=== PATIENT | male | born 1945 | race Caucasian/White ===

== ENCOUNTER 2019-08-12 17:16 | Emergency (ER) | payer MEDICARE, OTHER, SELFPAY ==
[2019-08-12 17:20] VITALS: BP 144/82; PULSE 63; RESP 16; TEMP 37; O2SAT 95; BMI 32.1
--- NOTE | 2019-08-12 20:10 | ED_ITS ---
Entered by Jesusita Pimentel, acting as scribe for Ivania Reed MD Aug 12, 2019 17:16 HPI - Skin/Abscess/Foreign Bdy General: Chief complaint: Skin/Abscess/Foreign Body Stated complaint: NECK PAIN Time Seen by Provider: 08/12/19 20:08 Source: patient and family Mode of arrival: ambulatory History of Present Illness: HPI narrative: 74 y/o male presents to the ED with an abscess to his neck. Pt states he is unable to lay down without being very uncomfortable. It is making it difficult for him to sleep. He states he has pain that radiates down his left shoulder, at times, from the pain. MD complaint: abscess/boil Location: neck Severity: mild Pain Consistency: constant Relieving factors: none Exacerbating factors: movement Associated symptoms: Deny chills, fever(s), nausea or vomiting Review of Systems Const: Denies: fever, chills, body aches or change in appetite Eyes: Denies: blurry vision or eye discomfort ENMT: Denies: throat pain or dental pain Card: Denies: chest pain Resp: Denies: shortness of breath GI: Denies: abdominal pain, nausea, vomiting or diarrhea : Denies: painful urination Musc: Denies: neck pain or back pain Skin/Breast: Reports: skin tenderness (abscess); Denies: rash Neuro: Denies: headache Psych: Denies: depression Jay/Lymph: Denies: easy bruising All/Imm: Denies: hives PFSH ED PFSH: Social History Smoking and tobacco status: former smoker Physical Exam Const: COMMON NORMALS: no apparent distress, oriented x3 and healthy appearing HENMT: COMMON NORMALS: normocephalic and head/scalp atraumatic HEAD & SCALP: normocephalic and atraumatic Eye: COMMON NORMALS: PERRL and EOMs intact bilaterally PUPIL: Yes PERRL Neck/C-Spine: GENERAL: Yes tender (abscess to posterior left neck) Chest: COMMONS NORMALS: inspection of chest normal and palpation of chest normal Resp: COMMON NORMALS: normal respiratory effort, no retractions, no use of accessory muscles and clear to auscultation bilaterally AUSCULTATION: clear to auscultation bilaterally Cardio: COMMON NORMALS: regular rate, regular rhythm and no murmurs RATE: regular rate RHYTHM: regular rhythm GI: COMMON NORMALS: normal to inspection, nondistended, normoactive bowel sounds, soft to palpation, non-tender and no masses PALPATION: Yes soft Extremity: COMMON NORMALS: normal to inspection and full ROM Neuro: COMMON NORMALS: oriented x3, moves all extremities and no focal motor deficits Psych: COMMON NORMALS: mental status grossly normal, thought process normal and cooperative THOUGHT PROCESS: normal thought process Skin: OTHER: neck abscess Procedures Abscess I/D Site: neck Local Anesthetic: lidocaine 1% Amount of anesthesia used (mL): 5 Technique: incised with #11 blade Amount of fluid expressed (mL): 5 Packing used?: none Course Vital Signs: Vital signs: Vital Signs Temperature 98.6 F 08/12/19 17:20 Pulse Rate 63 08/12/19 17:20 Respiratory Rate 16 08/12/19 17:20 Blood Pressure 144/82 08/12/19 17:20 Pulse Oximetry 95 08/12/19 17:20 MDM - Skin/Abscess/Foreign Bdy MDM Narrative: Medical decision making narrative: Patient presents here with abscess to the back of his neck. Abscess was incised and drained. Patient is to do warm compresses and will place on Bactrim. He is stable for discharge is return if worsening. Discharge Plan Discharge Patient Disposition: Home, Self-Care Clinical Impression: Abscess of skin or subcutaneous tissue Qualifiers: Site of cutaneous abscess: neck Qualified Code(s): L02.11 - Cutaneous abscess of neck Condition: Stable Prescriptions: New Bactrim DS 800-160 mg tablet 1 tab PO BID 10 Days Qty: 20 RF: 0 No Action carvedilol 3.125 mg tablet 3.125 mg PO BID 90 Days Qty: 180 RF: 3 Discharge Orders: Discharge Order (Routine); Ordered 08/12/19 Ordered By: Ivania Reed Referrals: Leidy Curry MD [Primary Care Provider] - Edwin Schumacher DO [Family Provider] - Discharge Diet: Advance as tolerated Discharge Activity: Resume usual activity Patient Instructions: Abscess (ED) Coding Level of Care Code ED [employer] Process Worker for Chg Fwd The documentation recorded by the Margarito cazares Ashley, accurately reflects the service I personally performed and the decisions made by Derek grossman Korby, MD Aug 12, 2019 17:16
[2019-08-12 20:16] VITALS: O2SAT 98
[2019-08-12 20:45] VITALS: BP 138/75; PULSE 85; RESP 16; O2SAT 99
== END 2019-08-12 20:46 | disposition home or self-care (01) ==
PROVIDERS: Emergency Provider Emergency Medicine; Family Provider Family Medicine; PCP Family Medicine
DX: L02.11 Cutaneous abscess of neck (principal); Z87.891 Personal history of nicotine dependence
CPT/HCPCS: 10060; 99282

== ENCOUNTER 2020-11-16 07:48 | Outpatient (CLI) | payer MEDICARE, OTHER, SELFPAY ==
--- NOTE | 2020-11-16 08:07 | XRR_ITS ---
PROCEDURE INFORMATION: Exam: XR Left Knee Exam date and time: 11/16/2020 8:17 AM Age: 75 years old Clinical indication: Knee; Bilateral; Patient HX: No injuries just painful; Additional info: Left knee pain TECHNIQUE: Imaging protocol: XR Left knee. Views: 3 views. COMPARISON: No relevant prior studies available. FINDINGS: Bones/joints: [id number] degenerative arthritis. Prominent hypertrophic extension medially. Medial joint space narrowing. Hypertrophic change of the tibial spine. No acute fracture. Soft tissues: Soft tissue vascular calcification. 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
--- NOTE | 2020-11-16 08:07 | XRR_ITS ---
PROCEDURE INFORMATION: Exam: XR Right Knee Exam date and time: 11/16/2020 8:17 AM Age: 75 years old Clinical indication: Bilateral; Patient HX: Bi lat knee pain. No injury causing pain. PT specifies pain is directly below patella; Additional info: R knee pain TECHNIQUE: Imaging protocol: XR Right knee. Views: 3 views. COMPARISON: No relevant prior studies available. FINDINGS: Bones/joints: Small anterior joint effusion. Suprapatella tendon insertion site calcification. Slight degenerative irregularity of the tibial spine. Minimal hypertrophic formation of the inner margin of the patella. Soft tissues: Posterior soft tissue vascular calcification. XR/XR knee RT 3V* [id number] IMPRESSION: Minor degenerative changes right knee.
== END 2020-11-16 07:49 | disposition home or self-care (01) ==
LOC: RAD 07:57
PROVIDERS: PCP Nurse Practitioner Family; Visit Provider Nurse Practitioner Family
DX: M25.561 Pain in right knee (principal); M25.562 Pain in left knee; M17.12 Unilateral primary osteoarthritis, left knee
CPT/HCPCS: 73562

== ENCOUNTER 2021-03-10 13:31 | Outpatient (CLI) | payer MEDICARE, OTHER, SELFPAY ==
--- NOTE | 2021-03-10 13:30 | USCV_ITS ---
Samir Olsen Age: 75 Gender: M : 1945 Exam Date: 03/10/2021 14:12 Ordering Phys: Selam Hanna MD ([email or web address]) Technologist: Cyndy Watson [place] [facility] [place]: Bradycardia, Heart blck BP: 156 / 57 HR: 38 Rhythm: Sinus Technical Quality: Fair MEASUREMENTS (Male / Female) Normal Values 2D ECHO LV Diastolic Diameter PLAX 4.8 cm 4.2 - 5.9 / 3.9 - 5.3 cm LV Systolic Diameter PLAX 3.6 cm IVS Diastolic Thickness 1.6 cm 0.6 - 1.0 / 0.6 - 0.9 cm IVS Systolic Thickness 1.9 cm LVPW Diastolic Thickness 1.1 cm 0.6 - 1.0 / 0.6 - 0.9 cm LVPW Systolic Thickness 2.0 cm LVOT Diameter 1.5 cm LV Ejection Fraction 2D Teich 47.9 % LV Ejection Fraction MOD 2C 47.3 % LV Ejection Fraction 2C AL 52.5 % LA Diameter 3.5 cm LA Width 4.1 cm LA Height 4.6 cm RA Width 4.3 cm RA Height 4.8 cm Aorta at Sinotubular Diameter 3.9 cm DOPPLER AV Peak Velocity 134.0 cm/s LVOT Peak Velocity 81.0 cm/s AV Area Cont Eq vti 1.1 cm squared AV Area Cont Eq pk 1.1 cm squared MV Peak Velocity 74.0 cm/s MV Area PHT 3.3 cm squared Mitral E to A Ratio 0.8 MV E' Velocity 38.5 cm/s Mitral E to MV E' Ratio 12.4 Mitral E to LV E' Lateral Ratio 11.8 Mitral E to LV E' Septal Ratio 13.3 TR Peak Velocity 196.0 cm/s TR Peak Gradient 15.4 mmHg Right Atrial Pressure 3.0 mmHg Pulmonary Artery Systolic Pressu 18.4 mmHg PV Peak Velocity 84.0 cm/s RV Acceleration Time 0.1 s RV Ejection Time 0.4 s RV AcT/ET 0.3 FINDINGS Left Ventricle Normal left ventricular cavity size. Moderately decreased left ventricle systolic function. Left ventricular ejection fraction is estimated at 30 %. Global hypokinesis. Abnormal septal motion consistent with conduction abnormality. Abnormal diastolic function. Right Ventricle Normal right ventricular size and systolic function. RVSP could not be calculated due to incomplete tricuspid regurgitation velocity profile. Right Atrium Normal right atrial size. Left Atrium Mildly increased left atrial size. Mitral Valve Structurally normal mitral valve. No mitral valve stenosis. Mild mitral valve regurgitation. Aortic Valve Structurally normal trileaflet aortic valve. No aortic valve stenosis. No aortic valve regurgitation. Tricuspid Valve Structurally normal tricuspid valve. Trace to mild tricuspid valve regurgitation. Pulmonic Valve Pulmonic valve not well visualized. No pulmonary valve stenosis. Trace pulmonary valve regurgitation. Pericardium No pericardial effusion. Aorta Upper normal sized aortic root measured 40 mm. Ascending aorta measured at 38 mm anteroposteriorly. CONCLUSIONS 1. This is a technically difficult study ultrasound enhancing agent Optison was used per protocol. 2. Normal left ventricular cavity size. Moderately decreased left ventricle systolic function. Left ventricular ejection fraction is estimated at 30 %. Global hypokinesis. Abnormal septal motion consistent with conduction abnormality. Abnormal diastolic function. 3. Mild mitral valve regurgitation. 4. Upper normal sized aortic root measured 40 mm. Ascending aorta measured at 38 mm anteroposteriorly. Selam Hanna MD (Electronically Signed) Final Date: 11 March 2021 17:37 S
[2021-03-10] MEDS: perflutren protein-a microsphr 0.22 mg/mL SDV 3 mL IV (15:25)
== END 2021-03-10 13:32 | disposition home or self-care (01) ==
PROVIDERS: PCP Nurse Practitioner Family; Visit Provider Internal Medicine Cardiovascular Disease
DX: I44.2 Atrioventricular block, complete (principal); I25.5 Ischemic cardiomyopathy; I34.0 Nonrheumatic mitral (valve) insufficiency
CPT/HCPCS: 80053; 83735; 83880; 84443; 85025; C8929

== ENCOUNTER → 2021-04-13 09:04 | Outpatient (BNVA) | payer MEDICARE, OTHER, SELFPAY | PROVIDERS: PCP Nurse Practitioner Family; Visit Provider Thoracic Surgery (Cardiothoracic Vascular Surgery) | DX: Z01.818 Encounter for other preprocedural examination (principal); I44.39 Other atrioventricular block; Z20.822 Contact with and (suspected) exposure to COVID-19 | CPT/HCPCS: 87635 ==

== ENCOUNTER 2021-04-18 12:28 | Observation (INO) | payer MEDICARE, OTHER, SELFPAY ==
[2021-04-13 10:35] VITALS: BMI 32.5
[2021-04-13 11:02] LABS: Add Urine Microscopic? NO; Charge for UA Resulting for Rev
[2021-04-13 11:04] LABS: Basophils # 0.1 10^3/uL (0.0-0.1); Basophils % 1.5 %; Eosinophils # 0.4 10^3/uL (0.0-0.8); Eosinophils % 5.6 %; Hematocrit 42.7 % (42.0-52.0); Hemoglobin 13.8 g/dL (11.7-16.6); Lymphocytes # 1.2 10^3/uL (0.8-4.8); Lymphocytes % 18.3 %; Mean Corpuscular HGB Conc 32.3 g/dL (30.0-36.0); Mean Corpuscular Hemoglobin 30.1 pg (28.0-34.0); Mean Corpuscular Volume 93.2 fl (80-94); Mean Platelet Volume 11.2 fL (7.4-10.4); Monocytes # 0.6 10^3/uL (0.2-0.9); Monocytes % 8.4 %; Neutrophils # 4.48 10^3/uL (1.8-7.7); Neutrophils % 66.1 %; Nucleated Red Blood Cells % 0 %; Platelet Count 243 10^3/cmm (130-400); Red Blood Count 4.58 10^6/uL (4.1-5.3); Red Cell Distribution Width 13.1 % (12.1-15.1); White Blood Count 6.8 10^3/uL (4.0-10.0)
--- NOTE | 2021-04-13 11:04 | ANES.PREANE2 ---
Pre-Anesthetic Assessment Pre-Anesthetic Assessment: Height/Weight: Height 1.75 m Weight 99.79 kg Preop Diagnosis: heart block Proposed Procedure: Operation Date: 04/18/21 09:40 Proposed Procedures p Pacemaker Insertion(Not Applicable) - Yonathan Lea MD Familial anesthetic complications: none Social: Social History: No alcohol and No tobacco Exam: Pre-Anes Outpt Exam: alert, oriented x 3, clear to auscultation bilaterally and regular rate & rhythm Airway: MP: 4 Dentition: False and Other Pulmonary: Pulmonary: COPD CV/HEM: CV/HEM: CAD, CHF, HTN and AR Comments: heart block Metabolic: Metabolic: Morbid obesity Anesthetic Plan: ASA status: 4 Anesthesia: MAC Risk of > 500 ml blood loss (7ml/kg in children): No PFSH Anesthesia PFSH: Medical History (Updated 03/13/21 @ 09:25 by Selam Hanna MD) CAD in [place] artery High-grade atrioventricular block HTN (hypertension) Hyperlipidemia Ischemic cardiomyopathy Myocardial infarction KINSEY (obstructive sleep apnea) Social History Smoking and tobacco status: former smoker Household members: spouse Marital status: Data Anesthesia CBC & Chem 7: 04/13/21 10:50 04/13/21 10:50 Other Labs: Laboratory Results - last 48 hr 04/13/21 10:50 WBC 6.8 RBC 4.58 Hgb 13.8 Hct 42.7 MCV 93.2 MCH 30.1 MCHC 32.3 RDW 13.1 Plt Count 243 MPV 11.2 H Neut % (Auto) 66.1 Lymph % (Auto) 18.3 [place]cculloch % (Auto) 8.4 Eos % (Auto) 5.6 Baso % (Auto) 1.5 Neut # (Auto) 4.48 Lymph # (Auto) 1.2 [place] # (Auto) 0.6 Eos # (Auto) 0.4 Baso # (Auto) 0.1 Nucleated RBC % (auto) 0 Nucleated RBCs # 0.0 Cardiac Studies: Echocardiogram 03/10/21 Cardiac Event Monitor 04/12/21
[2021-04-13 11:10] LABS: Bilirubin Urine Neg (Negative); Blood Urine Neg (Negative); Glucose Urine UA Norm (Normal); Ketones Urine Negative (Negative); Leukocyte Esterase Urine Negative (Negative); Nitrate Urine Negative (Negative); Protein Urine Neg (Negative); Specific Gravity, Urine 1.015 (1.005-1.030); Urine Appearance Clear (CLEAR); Urine Color Straw (Yellow); Urobilinogen Urine Norm (Negative); pH Urine 5 (5-7)
[2021-04-13 11:20] LABS: Anion Gap 13.5 (5-19); Blood Urea Nitrogen 17 mg/dL (8-23); Calcium 9.8 mg/dL (8.5-10.5); Carbon Dioxide 28 mmol/L (22-29); Chloride 99 mmol/L (98-107); Creatinine Clr Calc Pharmacy 65.4945; Glucose 90 mg/dL (65-115); Osmolality Calculated 283 mOsm/kg (285-295); Potassium 4.5 mmol/L (3.5-5.1); Sodium 136 mmol/L (136-145)
[2021-04-18] VITALS (18 sets, daily range): BP systolic 113–178; BP diastolic 65–93; PULSE 55–82; RESP 12–18; TEMP 36.2–37.5; O2SAT 91–100
--- NOTE | 2021-04-18 | SCC_ITS ---
Procedure Done: Dual-chamber pacemaker implantation 199.9 seconds of fluoroscopic guidance, for a cumulative dose of 44.12 mGy, was provided to Dr. Lea by the radiology department. C-arm images of the chest were saved for the patient's permanent record. [facility]
--- NOTE | 2021-04-18 07:40 | SC_ITS ---
WS: [id number] C-ARM RADIOGRAPHS CHEST; 2 IMAGES HISTORY: Pacemaker implantation COMPARISON: None available. Intraoperative imaging during cardiac pacer placement. Lead wires are noted projecting over the expec ambreen location of the heart. SC/C-arm FL for Pacemaker IMPRESSION: Intraoperative imaging during cardiac pacer placement.
[2021-04-18] MEDS: sodium chloride 0.9% 1,000 ML 30 ML IV (08:07)
--- NOTE | 2021-04-18 08:39 | P.ANESUD_ITS ---
Pre-Anesthetic Update Pre-Anesthetic Assessment: Date of Surgery/Procedure: 04/18/21 Preop Alexa gnosis: Cardiomyopathy/AV heart block Proposed Procedure: Operation Date: 04/18/21 09:40 Proposed Procedures p Pacemaker Insertion(Not Applicable) - Yonathan Lea MD Any changes to Pre-Anesthetic Assessment?: No Last Intake: Intake Last Liquid Date 04/17/21 Last Solid Date 04/17/21 Vitals: Temperature 97.2 F L 04/18/21 07:45 Temperature Source Temporal Artery S can 04/18/21 07:45 Pulse Rate 55 L 04/18/21 07:45 Respiratory Rate 18 04/18/21 07:45 Blood Pressure 178/83 04/18/21 07:45 Blood Pressure Cyndi n 114 04/18/21 07:45 Pulse Oximetry 97 04/18/21 07:45 Oxygen Delivery Me thod 04/18/21 07:45 Exam: Pre-Anes Outpt Exam: alert, oriented x 3, clear to auscultation bilaterally and regular rate & rhythm Additional Exam Findings (including area of procedure): referred sounds from larynx, denies URI or sore throat Cardiac Studies: Echocardiogram 03/10/21 Cardiac Event Monitor 04/12/21
--- NOTE | 2021-04-18 09:40 | PM.HP ---
Providers/Chief Complaint Admitting Physician: Dr. Lea Primary Care Provider: Antoinette Oswald Chief Complaint: Heart block History of Present Illness Samir Olsen is a 75 year old male who was referred to our service by Dr. Hanna to consider dual chamber pacemaker implantation due to pleat heart block rhythm of 32 bpm. He has undergone Holter monitoring which confirms atrioventricular block with a heart rate of 34 to 40 bpm. He has a history of coronary artery disease status post interventions including stenting to the LAD and RCA several years ago with remote anterior wall NE.. He has depressed ejection fraction and initially AICD implantation was recommended by Dr. Hanna. Mr. Olsen has refused defibrillator implantation, though does agree to dual-chamber pacemaker placement. He has a past history of tobacco use though none now. He also has sleep apnea, though has refused CPAP. Transthoracic echocardiogram left March 10 reveals ejection fraction estimated at approximately 30% with moderately decreased LV systolic function. He has global hypokinesia. There is abnormal septal motion with conduction abnormality. He has mild mitral valve regurgitation. Review of Systems Const: Denies: fever(s), chills, change in appetite, change in weight, fatigue or night sweats Eyes: Denies: change in vision or blurry vision ENMT: Denies: odynophagia or hoarseness Card: Reports: edema, swelling of feet/ankles and dyspnea on exertion; Denies: chest pain, palpitations or irregular heart rhythm Resp: Denies: dyspnea or productive cough GI: Denies: abdominal pain, nausea, vomiting, dysphagia, heartburn or change in bowel habits : Denies: difficulty urinating, dysuria, urinary frequency, urinary urgency or urinary hesitancy Musc: Denies: extremity pain or extremity swelling Skin/Breast: Denies: rash Neuro: Denies: headache(s), numbness in extremities, weakness in extremities or sensory changes Psych: Denies: anxiety, depression or change in appetite Endo: Denies: polyuria, polydipsia or cold intolerance Jay/Lymph: Denies: easy bruising, easy bleeding, petechiae or enlarged lymph nodes Medications/Allergies Home Medications Medication Instructions Recorded Confirmed Last Taken Type aspirin 81 mg tablet,delayed 81 mg PO DAILY 11/12/19 04/18/21 04/13/21 History release omega-3 fatty acids 1,000 mg 1,000 mg PO DAILY 11/12/19 04/18/21 04/16/21 History capsule clopidogrel 75 mg tablet 75 mg PO DAILY #90 tab 11/19/19 04/18/21 04/13/21 Rx spironolactone 25 mg tablet 25 mg PO DAILY #30 tab 03/23/21 04/18/21 04/16/21 Rx lisinopril 10 mg tablet 5 mg PO DAILY #30 tab 04/08/21 04/18/21 04/16/21 Rx Allergies Allergy/AdvReac Type Severity Reaction Status Date / Time Tetanus Vaccines and Toxoid Allergy Unknown Verified 04/18/21 07:43 PFSH Acute PFSH: Medical History CAD in [place] artery High-grade atrioventricular block HTN (hypertension) Hyperlipidemia Ischemic cardiomyopathy Myocardial infarction KINSEY (obstructive sleep apnea) Social History Smoking and tobacco status: former smoker Household members: spouse Marital status: Vitals/I&O/Wt Last Vital Signs Temp 97.2 F L 04/18/21 07:45 Pulse 55 L 04/18/21 07:45 Resp 18 04/18/21 07:45 BP 178/83 04/18/21 07:45 Pulse Ox 97 04/18/21 07:45 Physical Exam HENMT: COMMON NORMALS: normocephalic, atraumatic, hearing grossly normal bilaterally and external ears normal Neck/C-Spine: COMMON NORMALS: no lymphadenopathy, supple and No carotid bruits GENERAL: Yes normal visual inspection, Yes trachea midline and No anterior neck swelling Chest: COMMONS NORMALS: normal palpation of entire chest wall CHEST: Yes Symmetrical chest wall rise Resp: COMMON NORMALS: No retractions, No use of accessory muscles, clear to auscultation bilaterally and percussion normal EFFORT & INSPECTION: Yes able to speak in complete sentences and Yes symmetric chest movement Cardio: COMMON NORMALS: S1 normal heart sound present PALPATION: normal PMI RATE: bradycardic BRUITS: no abdominal aortic bruits and no carotid bruits PERIPHERAL PULSES: radial pulses present positive bilateral 2+ GI: COMMON NORMALS: Normal to inspection, nondistended, normoactive bowel sounds present, Soft to palpation and non-tender Extremity: COMMON NORMALS: capillary refill normal OTHER: 1+ pretibial edema Neuro: COMMON NORMALS: patient oriented x3, no focal motor deficits and no sensory deficits noted Data : 04/13/21 10:50 04/13/21 10:50 A&P Assessment and plan (1) CHB (complete heart block): We will plan to proceed with dual-chamber pacemaker implantation as Mr. Olsen has refused consideration for AICD implantation despite his cardiomyopathy. Rationale for pacemaker implantation was carefully reviewed. Details and risks of the procedure were carefully and frankly discussed. Risks reviewed include the possibility of , stroke, heart attack, major bleeding, infection, pneumonia, thorax requiring chest tube, organ failure, dislodgment of the leads requiring need for revision, failure to benefit, prolonged hospital stay, pain after the procedure, need for further procedures, inability to complete the procedure, and possible need for long-term followup. All questions were answered. Appropriate consents have been provided for review and signature. Status: Acute Attestations Medical Necessity Statement*: 75-year-old gentleman with symptomatic bradycardia secondary to complete heart block with history for cardiovascular disease and cardiomyopathy. Time Spent in Patient Care: 16 - 35 minutes Coding Level of Care Code Acute Hop Strainer for [facility] Fwd Diagnoses CHB (complete heart block) I44.2
[2021-04-18] MEDS: lidocaine 1% INJ 20 mL INJECTION (10:03)
[2021-04-18] MEDS: ceFAZolin 1,000 mg SDV 1000 MG IRRIGATION (10:38)
--- NOTE | 2021-04-18 12:09 | XRR_ITS ---
PROCEDURE INFORMATION: Exam: XR Chest Exam date and time: 04/18/2021 12:09 PM Age: 75 years old Clinical indication: Device placement; Cardiac pacemaker placement or adjustment; Prior surgery; Surgery date: Post-operative (0-2 days); Additional info: Post op pacemaker TECHNIQUE: Imaging protocol: XR of the chest. Views: 1 view. COMPARISON: CT chest con [id number] 09/30/2015 9:42 AM FINDINGS: Tubes, catheters and devices: Cardiac device right anterior chest in good position. Lungs: Unremarkable. No consolidation. Pleural spaces: Unremarkable. No pleural effusion. No pneumothorax. Heart/Mediastinum: Unremarkable. No cardiomegaly. Bones/joints: Unremarkable. XR/XR chest 1V portable [id number] IMPRESSION: 1. No acute findings. 2. Cardiac device right anterior chest. Radiation Dose CTDIVOL = (mGy): DLP = (mGy-cm)
--- NOTE | 2021-04-18 12:11 | P.PCN_ITS ---
PACU note PACU note: VSS, Good respiratory effort, report to MANAGER ASSISTED LIVING Post-Anesthesia Exam: awake
--- NOTE | 2021-04-18 12:11 | PM.PACU ---
PACU note PACU note: VSS, Good respiratory effort, report to FURNITURE REPAIR TECHNICIAN Post-Anesthesia Exam: awake
--- NOTE | 2021-04-18 12:34 | PM.OP ---
Operative Report Date of procedure: April 18, 2021 Pre-op Diagnosis: Cardiomyopathy/AV heart block Post-op diagnosis: same Procedure Done: Dual-chamber pacemaker implantation Implants: Pacing generator, atrial and ventricular leads Pathology: none sent Surgeon: Yonathan Lea Anesthesia: MAC and Local Complications: None: Chest x-ray reveals appropriate lead positioning through a right subclavian approach. Condition: stable Disposition: PACU Brief History: Mr. Olsen is a 75-year-old gentleman referred to our service by Dr. Hanna for dual-chamber pacemaker implantation due to complete heart block with Holter monitoring confirming atrial ventricular block with a heart rate of 30-40. He has a history of coronary artery disease with multiple interventions with remote anterior wall infarction. He does have depressed ejection fraction, though has refused AICD but does wish to proceed with pacemaker implantation. Details of risk of the procedure were carefully and frankly discussed. Appropriate consents have been reviewed and signed. Procedure: Procedure: Mr. Olsen was taken to the OR suite and placed in the supine position over a shoulder roll. He received conscious sedation with continuous anesthesia monitoring by. He is entire chest was sterilely prepped and draped. Initially, we attempted multiple times for access to the left subclavian approach without success. We also utilized hand-held ultrasonography, though still were unable to adequately pass a wire. Therefore, we next attempted approach through the right subclavian region. 1% lidocaine was infiltrated in the right subclavicular region. While in Trendelenburg position, utilizing modified seldinger technique, 2 guidewires were placed in the right subclavian vein. This was confirmed in position by fluoroscopy. Next, after infiltration with lidocaine, a subcutaneous pocket was created beginning from the exit point of the guidewire and extending laterally and inferiorly. Cautery was utilized to create the pocket just above the pectoralis musculature. Hemostasis was confirmed. An antibiotic-soaked sponge was placed in the wound. A dilator and tear-away sheath was placed over the first guidewire and advanced under fluoroscopy. Guidewire and dilator were removed. Next using a combination of curved and straight stylettes, the right ventricular lead was placed in position by fluoroscopy. The distal screw was extended. Interrogation was then performed confirming appropriate parameters. The tear-away sheath was then removed and the ventricular lead was sewn to the floor of the subcutaneous pocket. In a similar fashion dilator and tear-away sheath was placed over the 2nd guide wire and advanced under fluoroscopy. Guidewire and dilator were removed. Straight and curved stylettes were used to position the right atrial lead with fluoroscopy. Distal screw was extended. Interrogation was then performed. Tear-away sheath was then removed. Atrial lead was secured to the floor of the subcutaneous pocket. Pocket was irrigated with antibiotic solution and hemostasis again confirmed. Pacing generator was brought into the field, and after confirmation of hemostasis in the subcutaneous pocket, the leads were connected to the generator with appropriate capture. The entire system was interrogated by fluoroscopy. Leads and generator were secured in the pocket. Sponge and needle count was correct. The wound was then closed in 2 layers of 3-0 Vicryl suture. Skin was reapproximated in a subcuticular manner with 4-0 Monocryl suture. A pressure dressing was applied. The right arm was placed in a sling. Mr. Olsen had equal breath sounds bilaterally. He was then transferred to the PACU, where chest x-ray confirmed appropriate positioning of the leads without evidence for pneumothorax or fluid collection on either side. I did memorial counselor with the family at the completion of the procedure. Following are the specifics of this system: Right ventricular lead is 58 cm and model 5076. Serial number [id number] Right atrial lead is 52 cm and is model 5076. Serial number [id number]. Ventricular lead had sensing of 5.9 mV with an impedance of 1275 ohms. Threshold was 1.1 V Atrial lead had sensing of 3.7 mV with an impedance of 746 ohms. Threshold was 1.1 V. TreSensa generator: Model #[id number] Serial # [id number] Currently set at DDDR 60/130
[2021-04-18] MEDS: lactated ringers 1,000 ML 75 ML IV (12:59)
--- NOTE | 2021-04-18 13:46 | ANE.PACU2 ---
Inpatient post-anesthesia follow up: Airway intact: Yes Vital signs: Temperature 97.8 F Pulse Rate 65 Respiratory Rate 18 Blood Pressure 150/88 Pulse Oximetry 98 Oxygen Delivery Me thod Room Air Oxygen Flow Rate Fraction of Inspir ed Oxygen Hydration adequate: Yes Nausea and vomiting: No Pain level: 2 Mental status: Baseline
[2021-04-18] MEDS: morphine 4 mg/mL SDV 1 mL 2 MG IVP (15:02)
[2021-04-18] MEDS: HYDROcodone-acetaminophen 5-325 mg Tablet 1 TAB PO (17:19)
--- NOTE | 2021-04-18 17:53 | PC.NURSE ---
PATIENT HAS DONE WELL SINCE ARRIVING FROM THE OR. SURGICAL DRESSING IS C/D/I. PATIENT IS PACED ON TELEMETRY. GOOD PO INTAKE AND URINE OUTPUT. PAIN WELL CONTROLLED. SCD'S IN PLACE. IMMOBILIZER IN PLACE. NO COMPLAINTS AT THIS TIME.
[2021-04-19] MEDS: HYDROcodone-acetaminophen 5-325 mg Tablet 1 TAB PO ×3 (00:16→08:59)
[2021-04-19] MEDS: lactated ringers 1,000 ML 75 ML IV (00:18)
[2021-04-19] MEDS: TRAMadol 50 mg Tablet PO (02:52)
--- NOTE | 2021-04-19 05:53 | PC.NURSE ---
SHIFT SUMMARY Has rested well tonight. Dressing to R upper chest pacemaker site remained C&D. Removed this am with pacemaker eval. Incision covered with telfa. Pacemaker eval report from eshtery was good with no abnormalities reported. Received phone call and faxed report. IV infusing without difficulty. Taking po well and voiding per urinal. Receiving IV postop antibiotics as ordered. po Hydrocodone & Tramadol for pain relief this shift. Says he should get to go home today
[2021-04-19 06:00] VITALS: PULSE 60
--- NOTE | 2021-04-19 07:34 | P.DS_ITS ---
Discharge Providers Date of Admission: 04/18/21 12:28 Date of Discharge: April 19, 2021 Attending Provider at Admission: Yonathan Lea MD Attending Provider at Discharge: Yonathan Lea MD Primary Care Provider: Antoinette Oswald Diagnoses at Discharge Discharge Diagnosis (1) CHB (complete heart block): Status: Acute Reason for Visit Reason for Visit: Heart block Hospital Course Hospital Course Mr. Olsen is a 75-year-old gentleman is followed closely by Dr. Holt from our [facility] for complete heart block with documented heart rates in the 30s and 40s. He has a history of coronary artery disease with multiple interventions and prior remote anterior wall infarction. He was referred to consider pacemaker implantation. This was carefully discussed with Mr. Olsen. Dr. Hanna had requested that he consider AICD though he refused, but did agree to pacemaker placement. He was electively admitted on April 18 3 underwent dual-chamber pacemaker implantation. Due to difficulty with access through the left subclavian approach, his system was placed in a right subclavicular position. Postoperatively, he has done well. Postop interrogation this morning reveals appropriate system function. Surgical dressing was removed. His incision is clean and dry without evidence for fluid collection and with mild ecchymosis. Postoperative dressing was placed. He will be discharged home today with limited activities as instructed. He will be scheduled follow-up in the [facility] pacemaker clinic in 1 week. He is stable at discharge. Physical Exam Chest: COMMONS NORMALS: normal inspection of the chest OTHER: Surgical site is clean and dry without evidence for fluid collection. There is mild ecchymosis. Resp: COMMON NORMALS: normal respiratory effort, No use of accessory muscles and clear to auscultation bilaterally EFFORT & INSPECTION: Yes able to speak in complete sentences and Yes symmetric chest movement AUSCULTATION: clear to auscultation bilaterally Cardio: COMMON NORMALS: regular rate, regular rhythm, S1 normal heart sound present, No murmurs present (Cardio) and No rub (Cardio) RATE: regular rate RHYTHM: regular rhythm HEART SOUNDS: S1 normal heart sound present Extremity: COMMON NORMALS: no clubbing, cyanosis or edema Discharge Data Data Completed and Pending: Completed Studies During Hospitalization Category Date Time Status XR chest 1V renzo ble [id number] Routine Exams 04/18/21 12:09 Completed Vitals: Last Vital Signs Temp 97.7 F 04/18/21 23:52 Pulse 60 04/19/21 06:00 Resp 17 04/18/21 23:52 BP 131/79 04/18/21 23:52 Pulse Ox 91 04/18/21 23:52 Discharge Plan Discharge Patient Disposition: Home Condition: Stable Prescriptions: New hydrocodone-acetaminophen 5-325 mg Tablet 1 tab PO Q6H PRN (Reason: Moderate To Severe Pain) Qty: 15 RF: 0 sulfamethoxazole-trimethoprim [Bactrim DS] 800-160 mg tablet 1 tab PO DAILY 5 Days Qty: 10 RF: 0 Continued clopidogrel 75 mg tablet 75 mg PO DAILY Qty: 90 RF: 6 omega-3 fatty acids [Fish Oil Concentrate] 1,000 mg capsule 1,000 mg PO DAILY RF: 0 aspirin [Aspir-81] 81 mg tablet,delayed release (DR/EC) 81 mg PO DAILY RF: 0 spironolactone 25 mg tablet 25 mg PO DAILY Qty: 30 RF: 3 lisinopril 10 mg tablet 5 mg PO DAILY Qty: 30 RF: 0 Discharge Orders: Discharge Order (Routine); Ordered 04/19/21 Ordered By: Yonathan Lea Referrals: [facility] [Provider Group] - 1 week (Pacemaker Clinic) Discharge Diet: Usual diet Discharge Activity: Limit activity as instructed Patient Instructions: Opioid Safety Activity Restrictions/Additional Instructions: May remove surgical bandage in 2 days. No swimming or tub baths x2 weeks. May begin to shower in 4 days. Do not raise right arm above eye level for the next week. No heavy lifting or pulling x2 weeks. Take antibiotics as prescribed until completed Report any redness, swelling, increasing pain, fever, or drainage Please call clinic for any concerns. Discharge Attestations Time Spent in Discharge Care*: less than 30 min Specific Discharge Activities: educating patient, discussing with lead case manager/social workers/dc planners, documenting/other paperwork and evaluating patient/reviewing data Status at Discharge: Cognitive status at discharge: cognitively intact , Behavioral status at discharge: cooperative , Functional status at discharge: independent ambulation Overall status at discharge: patient is progressing back to baseline Quality Metrics Clinical Quality Measures During this hospital stay, did patient experience: None Coding Level of Care Code Acute Chg FW DC note Diagnoses CHB (complete heart block) I44.2
[2021-04-19 08:00] VITALS: BP 122/75; PULSE 78; RESP 18; TEMP 36.8; O2SAT 96
[2021-04-19] MEDS: pantoprazole DR 40 mg Tablet PO (09:00)
[2021-04-19] MEDS: lisinopril 5 mg Tablet PO (09:00)
[2021-04-19] MEDS: spironolactone 25 mg Tablet PO (09:00)
--- NOTE | 2021-04-19 10:17 | PC.NURSE ---
THIS NURSE CONTACTED PATIENT PHARMACY AND CLARIFIED BACTRIM ORDER SHOULD READ BID INSTEAD OF DAILY.
--- NOTE | 2021-04-19 10:30 | PC.NURSE ---
IV removed intact. Patient tolerated well. Patient is A&Ox3. Respirations even and non-labored on room air. Reviewed discharge instructions with patient and family at bedside. Patient and family verbalized understanding of discharge instructions. Patient and family verbalized understanding of taking antibiotic Bactrim 1 pill in the morning and 1 pill in the evening for 5 days. Patient wheel chaired to private car.
[2021-04-19 10:50] VITALS: BP 122/75; PULSE 78; RESP 18; TEMP 36.8; O2SAT 96
== END 2021-04-19 10:00 | disposition home or self-care (01) ==
LOC: MEDSURG 12:29
PROVIDERS: Admitting Provider Thoracic Surgery (Cardiothoracic Vascular Surgery); PCP Nurse Practitioner Family; Visit Provider Thoracic Surgery (Cardiothoracic Vascular Surgery)
PROC: (CPT 33208; principal; 2021-04-18 09:30)
DX: I44.2 Atrioventricular block, complete (principal); I25.10 Atherosclerotic heart disease of native coronary artery without angina pectoris; I34.0 Nonrheumatic mitral (valve) insufficiency; E78.5 Hyperlipidemia, unspecified; G47.33 Obstructive sleep apnea (adult) (pediatric); I11.0 Hypertensive heart disease with heart failure; I50.9 Heart failure, unspecified; I25.2 Old myocardial infarction; E66.01 Morbid (severe) obesity due to excess calories; Z68.32 Body mass index [BMI] 32.0-32.9, adult; Z79.82 Long term (current) use of aspirin; Z87.891 Personal history of nicotine dependence
CPT/HCPCS: 33208; 71045; 76000; 80048; 81003; 85025; C1779; C1786; C1898; G0378; J0690; J2250; J2270; J2704; J3010; J3490; J7030

== ENCOUNTER 2021-04-20 12:33 | Inpatient (IN) | payer MEDICARE, OTHER, SELFPAY ==
[2021-04-20 12:53] VITALS: BP 138/84; PULSE 113; RESP 20; TEMP 38.1; O2SAT 94; BMI 32.5
--- NOTE | 2021-04-20 12:57 | ECG_ITS ---
[facility] Test Date: 2021-04-20 Pat Name: Samir Olsen Department: Room: Gender: Male Intertype Operator: : 1945 Requested By: Darwin Sultana Order Number: [id number] Linda MD: Luis Alberto Torres M.D. Measurements Intervals [place] Rate: 107 P: -78 [place]: 187 QRS: -64 QRSD: 201 T: 108 QT: 393 QTc: 526 Interpretive Statements ELECTRONIC VENTRICULAR PACEMAKER-100% V paced rhythm ABNORMAL RHYTHM ECG Compared to ECG 11/01/2015 15:18:50 Sinus rhythm no longer present Left ventricular hypertrophy no longer present ST (T wave) deviation no longer present Myocardial infarct finding no longer present Electronically Signed On 04-20-2021 20:43:23 HOP STRAINER by Luis Alberto Torres M.D. [id number]
--- NOTE | 2021-04-20 13:21 | W.ED.FEVER ---
HPI - Fever General: Chief Complaint: Fever Stated Complaint: FEVER S/P PACEMAKER INSERTION ON Sunday04.18.21 Time Seen by Provider: 04/20/21 13:21 History of Present Illness: HPI Narrative: Mr. Olsen is a 75-year-old gentleman with significant past medical history of hypertension, hyperlipidemia, ischemic cardiomyopathy, complete heart block and recent pacemaker placement who presents emergency department due to postop concern. He underwent pacemaker placement on 04/18 and was discharged yesterday. He reports feeling mostly at baseline upon discharge however shortly after getting home developed symptoms. He endorses fever, generalized malaise, fatigue. Overall the intensity of symptoms moderate to severe. The course of been worsening. No other specific focal source of infection identified, denies sick contacts other than being in the hospital. No other specific exacerbating, alleviating, or provoking factors identified. Review of Systems General: Reports: 10 or more systems reviewed and unremarkable except in HPI and below PFSH ED PFSH: Medical History CAD in telida artery High-grade atrioventricular block HTN (hypertension) Hyperlipidemia Ischemic cardiomyopathy Myocardial infarction KINSEY (obstructive sleep apnea) Social History Smoking and tobacco status: former smoker Household members: spouse Marital status: Physical Exam Narrative: EXAM NARRATIVE: GENERAL/CONSTITUTIONAL -moderately ill-appearing. No acute distress. Eyes - PERRL, no conjunctival injection ENMT - Atraumatic external nose and ears. Dry mucous membranes NECK - supple. trachea midline CARDIOVASCULAR - tachycardic rate and regular rhythm CHEST WALL - pacemaker insertion site right anterior chest appears well-healing, no significant erythema, tenderness, fluctuance RESPIRATORY - clear to auscultation bilaterally. ABDOMEN/GI -mild generalized tenderness to palpation without evidence of peritonitis. MSK - Extremities without obvious deformity or tenderness to palpation SKIN - Warm, Dry NEURO - alert and appropriately oriented. Moves all extremities equally. Course ED course: - Patient was seen and evaluated by me at bedside - Patient placed on cardiac monitors, IV access obtained - Initial evaluation notable for ill appearance, tachycardia and fever. -Fluids and antibiotics given. - Labs notable for no leukocytosis, metabolic panel similar to prior with the exception of mildly elevated creatinine above baseline. Delta troponin elevated. BNP elevated. Negative viral studies. - Imaging notable for negative chest x-ray. Given unclear source of patient's sepsis with lower suspicion given physical exam for cellulitis secondary to pacemaker insertion CT imaging warranted. CT without obvious evidence of source of sepsis. - Verbal device interrogation report reports atrial tachycardia with normal function otherwise - Upon serial reexamination after treatment the patient was mildly improved - Based on patient history, evaluation, labs, and imaging as interpreted the most likely cause of the patient's condition is SIRS of unclear etiology - The results of ED evaluation were discussed with the patient including plan for admission due to requirement for level of care not available if discharged to prevent significant worsening/deterioration. - Hospitalist service contacted and agreed admit the patient for further IV antibiotics and blood culture surveillance. - Patient was admitted without further deterioration or significant events. Vital Signs: Vital signs: Vital Signs Temperature 97.7 F 04/22/21 07:20 Pulse Rate 77 04/22/21 09:51 Respiratory Rate 18 04/22/21 09:48 Blood Pressure 114/75 04/22/21 07:20 Pulse Oximetry 95 04/22/21 09:48 MDM - Fever Medical Records: Attestation: I reviewed the patient's medical records. Lab Data: Attestation: I reviewed the patient's lab results. Labs: Lab Results 04/20/21 04/20/21 04/20/21 13:39 13:39 13:39 WBC 9.9 10^3/uL 10^3/ uL (4.0-10.0) RBC 4.34 10^6/uL 10^6 /uL (4.1-5.3) Hgb 13.2 g/dL g/dL (11.7-16.6) Hct 40.2 % L % (42.0-52.0) MCV 92.6 fl fl (80-94) MCH 30.4 pg pg (28.0-34.0) MCHC 32.8 g/dL g/dL (30.0-36.0) RDW 13.2 % % (12.1-15.1) Plt Count 184 10^3/cmm 10^3 /cmm (130-400) MPV 10.8 fL H fL (7.4-10.4) Neut % (Auto) 81.3 % % Lymph % (Auto) 8.1 % % Pershing % (Auto) 6.7 % % Eos % (Auto) 3.2 % % Baso % (Auto) 0.4 % % Neut # (Auto) 8.03 10^3/uL H 10 ^3/uL (1.8-7.7) Lymph # (Auto) 0.8 10^3/uL 10^3/ uL (0.8-4.8) Pershing # (Auto) 0.7 10^3/uL 10^3/ uL (0.2-0.9) Eos # (Auto) 0.3 10^3/uL 10^3/ uL (0.0-0.8) Baso # (Auto) 0.0 10^3/uL 10^3/ uL (0.0-0.1) Nucleated RBC % (a uto) 0 % % Nucleated RBCs # 0.0 /100WBC /100W BC Sodium 135 mmol/L L mmol /L (136-145) Potassium 4.5 mmol/L mmol/L (3.5-5.1) Chloride 97 mmol/L L mmol/ L (98-107) Carbon Dioxide 24 mmol/L mmol/L (22-29) Anion Gap 18.5 (5-19) BUN 13 mg/dL mg/dL (8-23) Creatinine 1.4 mg/dL H mg/dL (0.7-1.2) GFR Calculation Not Reportable Glucose 102 mg/dL mg/dL (65-115) Calculated Osmolal ity 280 mOsm/kg L mOs m/kg (285-295) Lactic Acid 2.0 mmol/L mmol/L (0.5-2.2) Calcium 9.4 mg/dL mg/dL (8.5-10.5) Total Bilirubin 0.7 mg/dL mg/dL (0.15-1.2) AST 16 U/L U/L (0-40) ALT 6 U/L U/L (0-41) Alkaline Phosphata se 50 IU/L IU/L (40-130) Troponin T Baselin e Troponin T 120 Min [place] Delta Troponin T NT-Pro-B Natriuret Pep Total Protein 7.7 g/dL g/dL (6.6-8.7) Albumin 4.4 g/dL g/dL (3.5-5.2) Globulin 3.3 g/dL g/dL (1.3-4.6) Triglycerides Cholesterol LDL Cholesterol, C alc HDL Cholesterol LDL/HDL Ratio Cholesterol/HDL Ra miladis Procalcitonin TSH Urine Color Urine Appearance Urine pH Ur Specific Gravit y Urine Protein Urine Glucose (UA) Urine Ketones Urine Blood Urine Nitrate Urine Bilirubin Urine Urobilinogen Ur Leukocyte Camilla ase Nasal/Oral COVID-1 9 PCR Influenza Type A A g Influenza Type B A g SARS-CoV-2 Ag (Rap id) 04/20/21 04/20/21 04/20/21 13:39 13:39 14:30 WBC RBC Hgb Hct MCV MCH MCHC RDW Plt Count MPV Neut % (Auto) Lymph % (Auto) Pershing % (Auto) Eos % (Auto) Baso % (Auto) Neut # (Auto) Lymph # (Auto) Pershing # (Auto) Eos # (Auto) Baso # (Auto) Nucleated RBC % (a uto) Nucleated RBCs # Sodium Potassium Chloride Carbon Dioxide Anion Gap BUN Creatinine GFR Calculation Glucose Calculated Osmolal ity Lactic Acid Calcium Total Bilirubin AST ALT Alkaline Phosphata se Troponin T Baselin e 44 ng/L H ng/L (0-15) Troponin T 120 Min [place] Delta Troponin T NT-Pro-B Natriuret Pep 2577 pg/mL H pg/m L (0-450) Total Protein Albumin Globulin Triglycerides Cholesterol LDL Cholesterol, C alc HDL Cholesterol LDL/HDL Ratio Cholesterol/HDL Ra miladis Procalcitonin 0.19 ng/mL ng/mL (0-0.5) TSH 1.30 uIU/mL uIU/m L (0.27-4.20) Urine Color Urine Appearance Urine pH Ur Specific Gravit y Urine Protein Urine Glucose (UA) Urine Ketones Urine Blood Urine Nitrate Urine Bilirubin Urine Urobilinogen Ur Leukocyte Camilla ase Nasal/Oral COVID-1 9 PCR Influenza Type A A g Influenza Type B A g SARS-CoV-2 Ag (Rap id) Negative (Negative) 04/20/21 04/20/21 04/20/21 15:44 15:44 18:33 WBC RBC Hgb Hct MCV MCH MCHC RDW Plt Count MPV Neut % (Auto) Lymph % (Auto) Pershing % (Auto) Eos % (Auto) Baso % (Auto) Neut # (Auto) Lymph # (Auto) Pershing # (Auto) Eos # (Auto) Baso # (Auto) Nucleated RBC % (a uto) Nucleated RBCs # Sodium Potassium Chloride Carbon Dioxide Anion Gap BUN Creatinine GFR Calculation Glucose Calculated Osmolal ity Lactic Acid Calcium Total Bilirubin AST ALT Alkaline Phosphata se Troponin T Baselin e Troponin T 120 Min [place] 55.42 ng/L H ng/L (0-15) Delta Troponin T 11.42 ABS# H* ABS # (0-10) NT-Pro-B Natriuret Pep Total Protein Albumin Globulin Triglycerides 117 mg/dL mg/dL (0-150) Cholesterol 152 mg/dL mg/dL (0-200) LDL Cholesterol, C alc 100 mg/dL mg/dL (50-129) HDL Cholesterol 29 mg/dL L mg/dL (60-100) LDL/HDL Ratio 3.45 RATIO H RATI O (0.00-3.22) Cholesterol/HDL Ra miladis 5.24 mg/dL H mg/d L (1.0-5.00) Procalcitonin TSH Urine Color Yellow (Yellow) Urine Appearance Clear (CLEAR) Urine pH 5 (5-7) Ur Specific Gravit y 1.010 (1.005-1.030) Urine Protein Neg (Negative) Urine Glucose (UA) Norm (Normal) Urine Ketones Negative (Negative) Urine Blood Neg (Negative) Urine Nitrate Negative (Negative) Urine Bilirubin Neg (Negative) Urine Urobilinogen Norm mg/dL mg/dL (Negative) Ur Leukocyte Camilla ase Negative (Negative) Nasal/Oral COVID-1 9 PCR Influenza Type A A g Influenza Type B A g SARS-CoV-2 Ag (Rap id) 04/20/21 04/20/21 18:34 18:34 WBC RBC Hgb Hct MCV MCH MCHC RDW Plt Count MPV Neut % (Auto) Lymph % (Auto) Pershing % (Auto) Eos % (Auto) Baso % (Auto) Neut # (Auto) Lymph # (Auto) Pershing # (Auto) Eos # (Auto) Baso # (Auto) Nucleated RBC % (a uto) Nucleated RBCs # Sodium Potassium Chloride Carbon Dioxide Anion Gap BUN Creatinine GFR Calculation Glucose Calculated Osmolal ity Lactic Acid Calcium Total Bilirubin AST ALT Alkaline Phosphata se Troponin T Baselin e Troponin T 120 Min [place] Troponin T NT-Pro-B Natriuret Pep Total Protein Albumin Globulin Triglycerides Cholesterol LDL Cholesterol, C alc HDL Cholesterol LDL/HDL Ratio Cholesterol/HDL Ra miladis Procalcitonin TSH Urine Color Urine Appearance Urine pH Ur Specific Gravit y Urine Protein Urine Glucose (UA) Urine Ketones Urine Blood Urine Nitrate Urine Bilirubin Urine Urobilinogen Ur Leukocyte Camilla ase Nasal/Oral COVID-1 9 PCR Not detected Influenza Type A A g Negative (Negative) Influenza Type B A g Negative (Negative) SARS-CoV-2 Ag (Rap id) EKG Data^: EKG 1: Attestation: I personally reviewed and interpreted this EKG as follows: EKG interpretation date: 04/20/21 EKG interpretation time: 14:14 Interpretation: Twelve-lead EKG shows a regular rhythm at a rate of 109. [place] interval 146, QRS duration 209, QTc 460. Left axis deviation. Interpretation: Paced rhythm EKG 2: Attestation: I personally reviewed and interpreted this EKG as follows: EKG interpretation date: 04/20/21 EKG interpretation time: 17:25 Interpretation: Twelve-lead EKG shows a regular rhythm at a rate of 93. [place] interval 182, QRS duration 207, QTc 495. Left axis deviation. Interpretation: Paced rhythm. Discharge Plan Discharge Patient Disposition: Admitted As Inpatient Admit Provider: Jadyn Stevenson Clinical Impression: Sepsis Condition: Stable Discharge Diet: Cardiac and Low Salt Discharge Activity: Resume usual activity Coding Level of Care Code ED Research Support Specialist for Clementine Meredith
[2021-04-20 13:33] VITALS: BP 133/81; PULSE 121; RESP 26; TEMP 39.6; O2SAT 95
--- NOTE | 2021-04-20 13:36 | ECG_ITS ---
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 Measurements Intervals [place] Rate: 109 P: -20 [place]: 146 QRS: -62 QRSD: 209 T: 116 QT: 396 QTc: 535 Interpretive Statements ELECTRONIC VENTRICULAR PACEMAKER ABNORMAL RHYTHM ECG Compared to ECG 04/20/2021 13:00:34 No significant changes Electronically Signed On 04-20-2021 20:43:36 JOY OPERATOR HELPER by Luis Alberto Torres M.D. [id number]
[2021-04-20 13:51] LABS: Basophils % 0.4 %; Eosinophils # 0.3 10^3/uL (0.0-0.8); Eosinophils % 3.2 %; Hematocrit 40.2 % (42.0-52.0); Hemoglobin 13.2 g/dL (11.7-16.6); Lymphocytes # 0.8 10^3/uL (0.8-4.8); Lymphocytes % 8.1 %; Mean Corpuscular HGB Conc 32.8 g/dL (30.0-36.0); Mean Corpuscular Hemoglobin 30.4 pg (28.0-34.0); Mean Corpuscular Volume 92.6 fl (80-94); Mean Platelet Volume 10.8 fL (7.4-10.4); Monocytes # 0.7 10^3/uL (0.2-0.9); Monocytes % 6.7 %; Neutrophils # 8.03 10^3/uL (1.8-7.7); Neutrophils % 81.3 %; Nucleated Red Blood Cells % 0 %; Platelet Count 184 10^3/cmm (130-400); Red Blood Count 4.34 10^6/uL (4.1-5.3); Red Cell Distribution Width 13.2 % (12.1-15.1); White Blood Count 9.9 10^3/uL (4.0-10.0)
[2021-04-20] MEDS: cefepime 2,000 MG in sodium chloride 0.9% (plus) 50 ML 100 MG IV (13:59)
--- NOTE | 2021-04-20 14:11 | PC.PHAR ---
pt and pts family verified pts medications-rx filled on 04/19/21 5d/s for bactrim ds 1 tab bid-rx written on 04/19/21 from for 1 tab daily-rx filled on 03/14/21 90d/s for spironolactone 12.5mg daily-jerome has rx on hold for 25mg daily written on 03/23/21-notes are made in the pharmacy comments
[2021-04-20 14:15] LABS: Alanine Aminotransferase 6 U/L (0-41); Albumin Level 4.4 g/dL (3.5-5.2); Alkaline Phosphatase 50 IU/L (40-130); Anion Gap 18.5 (5-19); Aspartate Amino Transferase 16 U/L (0-40); Blood Urea Nitrogen 13 mg/dL (8-23); Calcium 9.4 mg/dL (8.5-10.5); Carbon Dioxide 24 mmol/L (22-29); Chloride 97 mmol/L (98-107); Globulin 3.3 g/dL (1.3-4.6); Glucose 102 mg/dL (65-115); Osmolality Calculated 280 mOsm/kg (285-295); Potassium 4.5 mmol/L (3.5-5.1); Sodium 135 mmol/L (136-145); Total Bilirubin 0.7 mg/dL (0.15-1.2); Total Protein 7.7 g/dL (6.6-8.7)
--- NOTE | 2021-04-20 14:17 | XR_ITS ---
WS: [id number] Portable AP upright chest, 04/20/2021 Clinical Data: sob Comparison: Portable chest, 04/18/2021. Findings: No nodules, masses or effusions are seen. The heart is enlarged. The pulmonary vascularity is not increased. No pneumonia or pneumothorax is seen. There is a cardiac pacemaker with 2 leads in good position in the heart. The generators overlapping the right axilla. There are monitor leads on t he chest wall. XR/XR chest 1V portable [id number] Impression: Cardiomegaly and cardiac pacemaker.
[2021-04-20 14:20] LABS: Troponin(5th) Baseline 44 ng/L (0-15)
[2021-04-20] MEDS: acetaminophen 500 mg Tablet 1000 MG PO (14:34)
[2021-04-20 15:03] LABS: SARS Covid-2 Antigen Negative (Negative)
--- NOTE | 2021-04-20 15:25 | CTR_ITS ---
PROCEDURE INFORMATION: Exam: CTA Chest With Contrast Exam date and time: 04/20/2021 3:25 PM Age: 75 years old Clinical indication: Abdominal pain; Chest pressure; Prior surgery; Additional info: Sepsis, cough, ? source TECHNIQUE: Imaging protocol: Computed tomographic angiography of the chest with contrast. 3D rendering (Not supervised by radiologist): MIP and/or 3D reconstructed images were created by the technologist. Total images: 1130 Radiation optimization: All CT scans at this facility use at least one of these dose optimization techniques: automated exposure control; mA and/or kV adjustment per patient size (includes targeted exams where dose is matched to clinical indication); or iterative reconstruction. Contrast material: OMNI 350; Contrast volume: 95 ml; Contrast route: INTRAVENOUS (IV); COMPARISON: CT chest wo con [id number] 09/30/2015 9:42 AM RADIATION DOSE METRICS: Total DLP (mGy-cm): 2204.48 FINDINGS: Tubes, catheters and devices: Pacemaker. Pulmonary arteries: No visible evidence of pulmonary embolism/pulmonary arterial thrombus. Aorta: The thoracic aorta is nonaneurysmal. No visible intimal flap or dissection. Lungs: Findings suggest the presence of low-grade interstitial edema/pulmonary edema with central pulmonary hyperemia. No visible consolidated alveolar airspace disease. Rare calcified granuloma of antecedent disease. Pleural spaces: No pneumothorax. No pleural effusion. Heart: Cardiac size upper limits of normal. No visible pericardial effusion. Coronary artery disease. Lymph nodes: Prominent mediastinal and hilar lymph nodes largest aortopulmonic node measuring 20 mm in the short axis. Rare calcified complex of antecedent disease present. Bones/joints: No visible active or acute osseous pathology. Soft tissues: Male gynecomastia. Other findings: Obesity. Respiratory motion artifact. IMPRESSION: 1. No visible evidence of pulmonary embolism/pulmonary arterial thrombus. 2. Findings suggest the presence of low-grade interstitial edema/pulmonary edema with central pulmonary hyperemia. 3. Prominent mediastinal and hilar lymph nodes largest aortopulmonic node measuring 20 mm in the short axis. 4. Calcified granulomas of antecedent disease. PROCEDURE INFORMATION: Exam: CT Abdomen And Pelvis With Contrast Exam date and time: 04/20/2021 3:25 PM Age: 75 years old Clinical indication: Abdominal pain; Chest pressure; Prior surgery; Additional info: Sepsis, cough, ? source TECHNIQUE: Imaging protocol: Computed tomography of the abdomen and pelvis with contrast. Radiation optimization: All CT scans at this facility use at least one of these dose optimization techniques: automated exposure control; mA and/or kV adjustment per patient size (includes targeted exams where dose is matched to clinical indication); or iterative reconstruction. Contrast material: OMNI 350; Contrast volume: 95 ml; Contrast route: INTRAVENOUS (IV); COMPARISON: CT chest wo con [id number] 09/30/2015 9:42 AM RADIATION DOSE METRICS: Total DLP (mGy-cm): 2204.48 FINDINGS: Liver: No visible hepatic mass. Rare simple hepatic cyst dominant medial segment left hepatic lobe measuring only 15 mm in diameter and stable. Gallbladder and bile ducts: Unremarkable. No calcified stones. No ductal dilation. Pancreas: Pancreas is unremarkable. No visible pancreatic ductal ectasia. Spleen: Spleen unremarkable. Adrenal glands: Adrenal glands unremarkable. Kidneys and ureters: No hydronephrosis or perinephric fluid. Solitary tiny nonobstructing calyceal nephrolithiasis focus equator right kidney under 2 mm. Bilateral simple renal cortical cysts the dominant inferior pole left kidney measuring 30 mm in diameter. No follow-up recommended. No visible renal mass. No visible ureterolithiasis. Stomach and bowel: Assessment of the hollow viscus fails to reveal evidence of active or acute pathology. Nonobstructed bowel pattern. No visible acute diverticulitis. No visible adynamic or reactive ileus. Markedly redundant colon. Appendix: The appendix is visualized and appears noninflamed. Intraperitoneal space: No visible pneumoperitoneum or intraperitoneal ascites. Vasculature: The abdominal aorta is nonaneurysmal. Mild arterial sclerotic disease. Lymph nodes: No current visible evidence of active mesenteric or retroperitoneal lymphadenopathy. No visible evidence of mesenteric lymphadenitis or active mesenteritis/panniculitis. Urinary bladder: Urinary bladder unremarkable. Reproductive: Mild prostate hypertrophy. Bones/joints: No visible active or acute osseous pathology. Age-appropriate degenerative disease and degenerative disc disease of the spine. Soft tissues: Bilateral inguinal hernias, left larger than right, containing fat only. Other findings: Obesity. Motion artifact. CT/CT angio chest w abd pel w con IMPRESSION: 1. Currently no visible evidence of acute abdominal or pelvic pathologic process. 2. Solitary tiny nonobstructing calyceal nephrolithiasis foci right kidney. COMMENTS: Consistent with the [employer]'s Incidental Findings Committee white paper (J Am Octaviano Radiol 2018): Any incidental renal lesion less than 1 cm or classified as too small to characterize, or any incidental cystic renal lesion characterized as simple-appearing, is likely benign. No follow-up imaging is recommended for these lesions per consensus recommendations based on imaging criteria. Radiation Dose CTDIVOL = (mGy): DLP = 2204.48~2204.48 (mGy-cm)
--- NOTE | 2021-04-20 15:36 | ECG_ITS ---
[facility] Test Date: 2021-04-20 Pat Name: Samir Olsen Department: Room: Gender: Male Or Nurse Manager: : 1945 Requested By: Manuel Craig Order Number: [id number] Linda MD: Luis Alberto Torres M.D. Measurements Intervals [place] Rate: 93 P: 65 MD: 182 QRS: -64 QRSD: 207 T: 106 QT: 445 QTc: 554 Interpretive Statements ELECTRONIC VENTRICULAR PACEMAKER ABNORMAL RHYTHM ECG Compared to ECG 04/20/2021 14:08:53 No significant changes Electronically Signed On 04-20-2021 20:51:50 SHRIMP PEELER by Luis Alberto Torres M.D. [id number]
[2021-04-20] MEDS: iodixanol 320 mg/mL 100mL Btl IV (15:53)
[2021-04-20 16:18] LABS: Troponin 5 2HR 55.42 ng/L (0-15)
[2021-04-20 16:21] LABS: Troponin 5 2HR Delta 11.42 ABS# (0-10)
--- NOTE | 2021-04-20 17:49 | PM.HP ---
Providers/Chief Complaint Primary Care Provider: Antoinette Oswald Chief Complaint: FEVER S/P PACEMAKER INSERTION ON 04.18. History of Present Illness Samir Olsen is a 75 year old male with past medical history of coronary artery disease with history of anterior PR history of ischemic cardiomyopathy (EF 30%, global hypokinesis, abnormal septal motion consistent with conduction abnormality abnormal diastolic dysfunction echo done March 10, 2021)and sleep apnea patient does not use CPAP or BiPAP, hypertension, hyperlipidemia presented to the ER with complaint of fever, racing heart beat and shortness of breath and cough. He is a former smoker. Patient was discharged from our hospital on 04/20 after pacemaker placement. He was supposed to go for a total knee replacement but when he went for cardiac clearance he was found to be in complete heart block and therefore was set up to have a pacemaker placed. Procedure was uneventful and patient was discharged in stable condition. However he has now developed fever, and therefore he is back. Pt does endorse a chronic cough, shortness of breath. He states he also been experiencing lower extremity swelling lately. He was taken off his spironalactone by PCP due to RENETTA but was restarted when seen by cardiology. Pt does not take any other diuretic. He states the pacemaker site hurts a lot and he did not know he had a fever until he got to ER. He denies chest pain, abdominal pain, diarrhea, sputum production or urinary complaints. ED course: Temperature 100.6, pulse rate 113, respiratory rate 20, blood pressure 138/84, pulse ox 94%. Temp did go upto 103 later on for which he was given tylenol. CTA chest did not show any PE. There is findings suggestive of low-grade interstitial edema/pulmonary edema with central pulmonary hyperemia. Prominent mediastinal and hilar lymph nodes largest aortopulmonary node measuring 20 mm in the short axis, calcified granulomas of antecedent disease present. CT abdomen did not show any acute abdominal pelvic pathology process. Solitary tiny nonobstructing calyceal nephrolithiasis foci in the right kidney. WBC count 9.9, hemoglobin 13.2, sodium 135, chloride 97, creatinine 1.4, troponin 44, with delta troponin of 11. Baseline BNP 723 March 10, 2021. Covid PCR - April 13, 2021. Rapid antigen negative today in the ER. Blood cultures were drawn. Patient was started on vancomycin and cefepime after given 30 cc per kg IV fluids. Review of Systems General: Reports: 10 or more systems reviewed and unremarkable except in HPI and below Medications/Allergies Home Medications Medication Instructions Recorded Confirmed Last Taken Type omega-3 fatty acids 1,000 mg 1,000 mg PO DAILY 11/12/19 04/20/21 04/16/21 History capsule clopidogrel 75 mg tablet 75 mg PO DAILY #90 tab 11/19/19 04/20/21 04/13/21 Rx lisinopril 10 mg tablet 5 mg PO DAILY #30 tab 04/08/21 04/20/21 04/16/21 Rx hydrocodone-acetaminophen 1 tab PO Q6H PRN #15 tab 04/19/21 04/20/21 04/20/21 11:30 Rx aspirin [Aspir-81] 81 mg PO QAM 04/20/21 04/20/21 Unknown History glucosamine HCl 1 cap PO DAILY 04/20/21 04/20/21 Unknown History morinda citrifolia fruit [Amparo] 250 mg PO DAILY 04/20/21 04/20/21 Unknown History spironolactone 12.5 mg PO DAILY 04/20/21 04/20/21 Unknown History sulfamethoxazole-trimethoprim 1 tab PO BID 04/20/21 04/20/21 04/19/21 History [Bactrim DS] Allergies Allergy/AdvReac Type Severity Reaction Status Date / Time Tetanus Vaccines and Toxoid Allergy Unknown Verified 04/18/21 07:43 PFSH Acute PFSH: Medical History CAD in burns [place] artery High-grade atrioventricular block HTN (hypertension) Hyperlipidemia Ischemic cardiomyopathy Myocardial infarction KINSEY (obstructive sleep apnea) Social History Smoking and tobacco status: former smoker Household members: spouse Marital status: Vitals/I&O/Wt Last Vital Signs Temp 103.2 F H 04/20/21 13:33 Pulse 121 H 04/20/21 13:33 Resp 26 H 04/20/21 13:33 BP 133/81 04/20/21 13:33 Pulse Ox 95 04/20/21 13:33 04/20/21 04/20/21 04/20/21 06:59 14:59 22:59 Intake Total 2171 / 2171 Balance 2170 / 2170 Weight last 48 hrs Weight 99.79 kg Physical Exam Narrative: EXAM NARRATIVE: General: Alert oriented x3, patient seen laying in bed appearing comfortable HEENT: Normocephalic, atraumatic, EOMI, breathing room air Cardio: Regular rate rhythm, normal S1-S2, no murmurs rubs gallops, Pacemaker site does not appear infected. there is no erythema or warm noted. there is no fluctuance noted as well. area is non tender to palpation. Respiratory: Good bilateral air entry, mild to mod expiratory wheezes throughout lung palomo with very mild crackles at left base. GI: Abdomen soft, nontender, nondistended, bowel sounds + Behavior: Appropriate and cooperative Extremities: Pulses 2+, 2+ pitting edema b/l lower extremities Data : 04/20/21 13:39 04/20/21 13:39 Micro: Microbiology 04/20/21 13:50 Blood Culture - Preliminary Blood SPECIMEN COLLECTED 04/20/21 13:50 Blood Culture - Preliminary Blood SPECIMEN COLLECTED A&P Assessment and plan (1) Ischemic cardiomyopathy: Status: Acute (2) HTN (hypertension): Status: Acute Qualifiers: Hypertension type: essential hypertension Qualified Code(s): I10 - Essential (primary) hypertension (3) KINSEY (obstructive sleep apnea): Status: Acute (4) Acute kidney injury: Status: Acute (5) Sepsis: Status: Acute (6) Hyperlipidemia: Status: Acute Qualifiers: Hyperlipidemia type: mixed hyperlipidemia Qualified Code(s): E78.2 - Mixed hyperlipidemia (7) Pacemaker: Status: Acute Additional A&P Information Sepsis secondary to unknown source - recent pacemaker placement but site does not appear infected -patient was given Vanco and cefepime in the ER. At admission. He had a fever of 103 in ER. Tachycardic tachypneic at that time but vitals ok when seen. -We will check urine culture, blood culture, pro calcitonin, Covid PCR to be checked ?We will repeat labs in a.m. Acute kidney injury, baseline creatinine 1.1 Possible cardiorenal syndrome Creatinine today 1.4. Patient did receive IV fluids. We will recheck. Hold lisinopril Hold spironolactone Obstructive sleep apnea ?Placed on CPAP overnight Acute on chronic systolic heart failure History of coronary artery disease Status post pacemaker placement April 18, 2021 History of hypertension History of hyperlipidemia ?Continue aspirin, Plavix. Last echo March 10, 2021 which showed EF of 30% with global hypokinesia. BNP 2500 CTA chest does show some mild pulmonary edema. Will give lasix 40 IV push 6 hour troponin pending. will inform night hospitalist to follow up. Mediastinal hilar lymph nodes with largest aortopulmonic node 20 mm in short axis. Also showing calcified granulomas of antecedent disease ?Possible pulmonology follow-up as an outpatient. Diet: Cardiac DVT prophylaxis: Heparin Attestations Medical Necessity Statement*: >48 hours inpt stay Time Spent in Patient Care: Greater than 35 minutes Coding Level of Care Code Acute Communication Lecturer for g Fwd Diagnoses Ischemic cardiomyopathy I25.5 HTN (hypertension) I10 Hypertension type: essential hypertension KINSEY (obstructive sleep apnea) G47.33 Acute kidney injury N17.9 Sepsis A41.9 Hyperlipidemia E78.2 Hyperlipidemia type: mixed hyperlipidemia Pacemaker Z95.0
[2021-04-20 18:45] LABS: Add Urine Microscopic? NO; Bilirubin Urine Neg (Negative); Blood Urine Neg (Negative); Glucose Urine UA Norm (Normal); Ketones Urine Negative (Negative); Leukocyte Esterase Urine Negative (Negative); Nitrate Urine Negative (Negative); Protein Urine Neg (Negative); Urine Appearance Clear (CLEAR); Urine Color Yellow (Yellow); Urobilinogen Urine Norm (Negative); pH Urine 5 (5-7)
[2021-04-20 18:46] LABS: Charge for UA Resulting for Rev
[2021-04-20 19:09] LABS: Influenza A by IFA Negative (Negative); Influenza B by IFA Negative (Negative)
[2021-04-20 19:10] LABS: NT Pro B Type Natriuretic Pept 2577 pg/mL (0-450); Procalcitonin 0.19 ng/mL (0-0.5)
--- NOTE | 2021-04-20 19:20 | PC.NURSE ---
Addendum entered by Maira Kraus RN 04/20/21 19:20: CORRECTION: VISITED WITH PATIENT AT 1910. Original Note: NURSE TO NURSE REPORT GIVEN AT 1845. THIS NURSE VISITED WITH PATIENT AT 1710.
[2021-04-20 19:21] VITALS: BP 127/72; PULSE 100; RESP 18; O2SAT 95
--- NOTE | 2021-04-20 19:36 | ECG_ITS ---
[facility] Test Date: 2021-04-20 Pat Name: Samir Olsen Department: Room: 251 Gender: Male Customer Success Manager: : 1945 Requested By: Manuel Craig Order Number: [id number] Linda MD: Luis Alberto Torres M.D. Measurements Intervals [place] Rate: 88 P: 55 CT: 185 QRS: -51 QRSD: 208 T: 114 QT: 444 QTc: 539 Interpretive Statements ELECTRONIC VENTRICULAR PACEMAKER A sensed V paced ABNORMAL RHYTHM ECG Compared to ECG 04/20/2021 17:20:53 No significant changes Electronically Signed On 04-21-2021 22:52:46 DRIVER LICENSE TECHNICIAN by Luis Alberto Torres M.D. [id number]
[2021-04-20 20:00] VITALS: BP 155/86; PULSE 103; RESP 17; TEMP 36.9; O2SAT 97
[2021-04-20 20:03] VITALS: BMI 32.5
[2021-04-20 20:37] LABS: Chol HDL Ratio 5.24 mg/dL (1.0-5.00); Cholesterol 152 mg/dL (0-200); HDL Cholesterol 29 mg/dL (60-100); LDL Cholesterol Calculated 100 mg/dL (50-129); LDL HDL Ratio 3.45 RATIO (0.00-3.22); Triglycerides 117 mg/dL (0-150)
[2021-04-20] MEDS: aspirin 81 mg Chew Tablet 324 MG PO (20:51)
[2021-04-20] MEDS: heparin 5,000 unit/mL INJ 1 mL 5000 UNIT SUBCUT (20:53)
[2021-04-20] MEDS: FUROsemide 10 mg/mL SDV 2mL 40 MG IVP (20:54)
[2021-04-20 21:05] LABS: Troponin 5 6HR 144.8 ng/L (0-15); Troponin 5 6HR Delta 100.8 ng/L (0-12)
--- NOTE | 2021-04-20 21:16 | PC.NURSE ---
i reported high pulse 103 to nurse
[2021-04-20 22:00] VITALS: PULSE 88
[2021-04-20] MEDS: atorvastatin 40 mg Tablet PO (22:02)
[2021-04-20 23:13] VITALS: BP 133/85; PULSE 105; RESP 17; TEMP 36.7; O2SAT 93
--- NOTE | 2021-04-20 23:13 | PC.NURSE ---
i reported high pulse 105 to nurse
[2021-04-20] MEDS: piperacillin-tazobactam 3.375 GM in sodium chloride 0.9% (plus) 50 ML IV (23:45)
[2021-04-21] VITALS (9 sets, daily range): BP systolic 110–136; BP diastolic 72–86; PULSE 72–100; RESP 14–18; TEMP 36.7–37.9; O2SAT 92–95
--- NOTE | 2021-04-21 05:29 | PC.NURSE ---
Patient arrived to floor via stretcher, VSS, AAOx4, no c/o pain but refuses to lay in bed d/t arthritis and is sitting in chair. Patient OOBT bathroom without difficulty and is voiding. No needs at this time. Resting comfortably, room clutter free and call light in reach.
[2021-04-21 05:47] LABS: Basophils # 0.1 10^3/uL (0.0-0.1); Basophils % 0.7 %; Eosinophils # 0.4 10^3/uL (0.0-0.8); Eosinophils % 5.8 %; Hematocrit 36.3 % (42.0-52.0); Hemoglobin 11.6 g/dL (11.7-16.6); Lymphocytes # 0.6 10^3/uL (0.8-4.8); Lymphocytes % 8.5 %; Mean Corpuscular Hemoglobin 29.8 pg (28.0-34.0); Mean Corpuscular Volume 93.3 fl (80-94); Mean Platelet Volume 11.4 fL (7.4-10.4); Monocytes # 0.8 10^3/uL (0.2-0.9); Monocytes % 10.9 %; Neutrophils # 5.47 10^3/uL (1.8-7.7); Neutrophils % 73.8 %; Nucleated Red Blood Cells % 0 %; Platelet Count 156 10^3/cmm (130-400); Red Blood Count 3.89 10^6/uL (4.1-5.3); Red Cell Distribution Width 13.2 % (12.1-15.1); White Blood Count 7.4 10^3/uL (4.0-10.0)
--- NOTE | 2021-04-21 06:00 | XR_ITS ---
WS: [id number] PORTABLE CHEST HISTORY: Pacemaker placement. COMPARISON: 04/20/2021 RIGHT subclavian pacemaker insertion with no apparent complications. There is no pneumothorax or krissy jalil. Mild thickening of the interstitium is probably related to positioning. No pleural effusion or pneumo thorax. Cardiac size: Mildly enlarged cardiac silhouette. Mediastinum/Aorta: Mild atherosclerosis aorta. No osseous abnormality seen. XR/XR chest 1V portable [id number] IMPRESSION: No complications status post RIGHT subclavian pacer insertion.
[2021-04-21 06:06] LABS: Alanine Aminotransferase < 5 U/L (0-41); Albumin Level 3.8 g/dL (3.5-5.2); Alkaline Phosphatase 36 IU/L (40-130); Anion Gap 14.9 (5-19); Aspartate Amino Transferase 27 U/L (0-40); Blood Urea Nitrogen 15 mg/dL (8-23); Calcium 8.9 mg/dL (8.5-10.5); Carbon Dioxide 23 mmol/L (22-29); Chloride 100 mmol/L (98-107); Globulin 3.2 g/dL (1.3-4.6); Glucose 90 mg/dL (65-115); Magnesium 1.7 mg/dL (1.7-2.3); Osmolality Calculated 278 mOsm/kg (285-295); Phosphorus 1.7 mg/dL (2.5-4.5); Potassium 3.9 mmol/L (3.5-5.1); Sodium 134 mmol/L (136-145)
[2021-04-21] MEDS: piperacillin-tazobactam 3.375 GM in sodium chloride 0.9% (plus) 50 ML IV ×3 (06:08→23:36)
[2021-04-21 06:33] LABS: Troponin T (5th) Once 299 ng/L (0-15)
[2021-04-21] MEDS: heparin drip 25,000 UNIT/500 ML PREMIX 27.94 UNIT IV (08:14)
[2021-04-21] MEDS: heparin 5,000 unit/mL INJ 1 mL IV (08:26)
[2021-04-21] MEDS: carvedilol 3.125 mg Tablet PO ×2 (10:44→17:22)
[2021-04-21] MEDS: clopidogrel 75 mg Tablet PO (10:44)
[2021-04-21] MEDS: aspirin 81 mg Chew Tablet PO (10:44)
--- NOTE | 2021-04-21 10:47 | PC.CHAP ---
Pastoral Care Encounter/Spiritual Assessment Type of Contact [] Declined marble cutter visit [] Patient/Family/Request visit [] Outpatient visit [] Follow-up visit [] Physician referral [] Code/Alert [] Routine visit [] Staff referral [] Actively dying [] Patient sleeping [] Family support [] [] Out of room [] Palliative care [] [] Receiving care in room [] Pre-surgical visit [] Trauma [] Long length of stay [] ICU visit [x] Other: Isolation Relational/Emotional Strength [] Patient feels connected with others/family/visitors/staff [] Distress [] Loneliness/isolation [] Abandonment Spirituality of Patient [] Person of Alexia [] Attends [employer] of their Alexia [] Believes in Prayer [] Reads Bible or Mandaen materials [] There are Spiritual issues to be addressed Tipple Tender Interventions [] Prayer [] Active listening [] Non-anxious presence [] Spiritual/emotional support [] Crisis/trauma care [] Spiritual counseling [] Bereavement support [] Provided bereavement packet [] Provided Bible/devotional materials [] Provided toy/stuffed animal, coloring book to patient or family member [] Provided Communion [] Anointing/Kendalia [] Salvation [] Completed spiritual assessment [] Other: Impact on Illness or Injury [] Angry [] Fearful [] Anxious [] Often cries [] Exhaustion [] Unable to work [] Unable to attend scientologist [] Unable to walk/stand [] Unable to read [] Unable to drive [] Unable to eat/drink [] Unable to sleep [] Unable to be with family [] Patient intubated [] Other: Summary Isolation Time spent with patient 5 minjhs
[2021-04-21] MEDS: FUROsemide 10 mg/mL SDV 4mL 40 MG IVP (11:27)
--- NOTE | 2021-04-21 12:46 | PM.PN ---
Subjective Subjective: Interval history: Seen and examined this morning. Patient states he feels a lot better and reports no shortness of breath. Did have a fever this morning 100.4. Still complains of pain over the pacemaker site. Denies a cough denies diarrhea. Vitals/I&O/Wt Last Vital Signs Temp 99.8 F H 04/21/21 11:03 Pulse 80 04/21/21 11:03 Resp 17 04/21/21 11:03 BP 134/75 04/21/21 11:03 Pulse Ox 94 04/21/21 11:03 04/20/21 04/21/21 04/21/21 22:59 06:59 14:59 Intake Total 2171 / 2171 670 / 2841 410 / 410 Output Total 350 / 350 Balance 2171 / 2171 320 / 2491 410 / 410 Weight last 48 hrs Weight 99.79 kg Weight 99.79 kg Physical Exam Narrative: EXAM NARRATIVE: General: Alert oriented x3, patient seen sitting up in recliner. Comfortable. HEENT: Normocephalic, atraumatic, EOMI, breathing room air Cardio: Regular rate rhythm, normal S1-S2, no murmurs rubs gallops, Pacemaker site does not appear infected. there is no erythema or warm noted. there is no fluctuance noted as well. area is non tender to palpation. Respiratory: Good bilateral air entry, mild to mod expiratory wheezes throughout lung palomo. Lung exam has improved compared to admission still has wheezes. No crackles noted today. GI: Abdomen soft, nontender, nondistended, bowel sounds + Behavior: Appropriate and cooperative Extremities: Pulses 2+, 1+ pitting edema b/l lower extremities, improved compared to admission. Data : 04/21/21 04:48 04/21/21 04:48 Micro: Microbiology 04/20/21 13:50 Blood Culture - Preliminary Blood SPECIMEN COLLECTED 04/20/21 13:50 Blood Culture - Preliminary Blood SPECIMEN COLLECTED A&P Assessment and plan (1) Ischemic cardiomyopathy: Status: Acute (2) HTN (hypertension): Status: Acute Qualifiers: Hypertension type: essential hypertension Qualified Code(s): I10 - Essential (primary) hypertension (3) KINSEY (obstructive sleep apnea): Status: Acute (4) Acute kidney injury: Status: Acute (5) Sepsis: Status: Acute (6) Hyperlipidemia: Status: Acute Qualifiers: Hyperlipidemia type: mixed hyperlipidemia Qualified Code(s): E78.2 - Mixed hyperlipidemia (7) Pacemaker: Status: Acute Additional A&P Information Sepsis secondary to unknown source - recent pacemaker placement but site does not appear infected -patient was given Vanco and cefepime in the ER. At admission. He had a fever of 103 in ER. Tachycardic tachypneic at that time but vitals ok when seen. -Urine culture pending, blood culture negative to date, procalcitonin negative, Covid PCR pending. ?We will repeat labs in a.m. Acute kidney injury, baseline creatinine 1.1 Possible cardiorenal syndrome Creatinine at admission 1.4. Patient did receive IV fluids in ER. Also got Lasix 40 IV. Creatinine improved to 1.2 today. Hold lisinopril Hold spironolactone Obstructive sleep apnea ?Placed on CPAP overnight Acute on chronic systolic heart failure History of coronary artery disease Status post pacemaker placement April 18, 2021 History of hypertension History of hyperlipidemia Troponin elevation most likely secondary to demand ischemia ?Continue aspirin, Plavix. Last echo March 10, 2021 which showed EF of 30% with global hypokinesia. BNP 2500 CTA chest does show some mild pulmonary edema admission. Received one-time dose of Lasix 40 IV at admission. Will give an additional dose of Lasix 40 today. Delta troponin I 100. Patient was placed on heparin drip overnight for 48 hours. Mediastinal hilar lymph nodes with largest aortopulmonic node 20 mm in short axis. Also showing calcified granulomas of antecedent disease ?Possible pulmonology follow-up as an outpatient. Diet: Cardiac DVT prophylaxis: Heparin Attestations Medical Necessity Statement*: > 48 hour stay Coding Level of Care Code Acute Workday Senior Associate for g Fwd Diagnoses Ischemic cardiomyopathy I25.5 HTN (hypertension) I10 Hypertension type: essential hypertension KINSEY (obstructive sleep apnea) G47.33 Acute kidney injury N17.9 Sepsis A41.9 Hyperlipidemia E78.2 Hyperlipidemia type: mixed hyperlipidemia Pacemaker Z95.0
[2021-04-21 16:23] LABS: Partial Thromboplastin Time 198.9 SECONDS (23.9-36.7)
[2021-04-21] MEDS: atorvastatin 40 mg Tablet PO (20:52)
[2021-04-21] MEDS: vancomycin 1,500 MG/300 ML PIGGYBACK 200 MG IV (21:28)
[2021-04-22] VITALS (7 sets, daily range): BP systolic 114–125; BP diastolic 75–82; PULSE 65–81; RESP 14–18; TEMP 36.5–36.6; O2SAT 94–96; BMI 32.5
[2021-04-22] MEDS: ipratropium-albuterol 3 mL Neb INHALATION ×2 (00:39→08:48)
[2021-04-22 06:15] LABS: Basophils # 0.1 10^3/uL (0.0-0.1); Basophils % 1.5 %; Eosinophils # 0.6 10^3/uL (0.0-0.8); Hematocrit 35.8 % (42.0-52.0); Hemoglobin 11.6 g/dL (11.7-16.6); Lymphocytes # 1.1 10^3/uL (0.8-4.8); Lymphocytes % 18.8 %; Mean Corpuscular HGB Conc 32.4 g/dL (30.0-36.0); Mean Corpuscular Hemoglobin 30.1 pg (28.0-34.0); Mean Corpuscular Volume 92.7 fl (80-94); Mean Platelet Volume 11.2 fL (7.4-10.4); Monocytes # 0.8 10^3/uL (0.2-0.9); Monocytes % 13.1 %; Neutrophils # 3.22 10^3/uL (1.8-7.7); Neutrophils % 55.4 %; Nucleated Red Blood Cells % 0 %; Platelet Count 160 10^3/cmm (130-400); Red Blood Count 3.86 10^6/uL (4.1-5.3); Red Cell Distribution Width 13.2 % (12.1-15.1); White Blood Count 5.8 10^3/uL (4.0-10.0)
[2021-04-22 06:40] LABS: Anion Gap 16.9 (5-19); Blood Urea Nitrogen 25 mg/dL (8-23); Calcium 9.1 mg/dL (8.5-10.5); Carbon Dioxide 24 mmol/L (22-29); Chloride 97 mmol/L (98-107); Creatinine Clr Calc Pharmacy 65.4945; Glucose 92 mg/dL (65-115); Osmolality Calculated 282 mOsm/kg (285-295); Potassium 3.9 mmol/L (3.5-5.1); Sodium 134 mmol/L (136-145)
[2021-04-22] MEDS: piperacillin-tazobactam 3.375 GM in sodium chloride 0.9% (plus) 50 ML IV (06:41)
[2021-04-22] MEDS: aspirin 81 mg Chew Tablet PO (08:37)
[2021-04-22] MEDS: carvedilol 3.125 mg Tablet PO (08:37)
[2021-04-22] MEDS: acetaminophen 325 mg Tablet 650 MG PO (08:37)
[2021-04-22] MEDS: clopidogrel 75 mg Tablet PO (08:37)
--- NOTE | 2021-04-22 11:30 | PM.DCS ---
Discharge Providers Date of Admission: 04/20/21 18:59 Date of Discharge: April 22, 2021 Attending Provider at Admission: Jadyn Stevenson MD Attending Provider at Discharge: Jadyn Stevenson MD Primary Care Provider: Antoinette Oswald Diagnoses at Discharge Discharge Diagnosis (1) Ischemic cardiomyopathy: Status: Acute (2) HTN (hypertension): Status: Acute Qualifiers: Hypertension type: essential hypertension Qualified Code(s): I10 - Essential (primary) hypertension (3) KINSEY (obstructive sleep apnea): Status: Acute (4) Acute kidney injury: Status: Acute (5) Sepsis: Status: Acute (6) Hyperlipidemia: Status: Acute Qualifiers: Hyperlipidemia type: mixed hyperlipidemia Qualified Code(s): E78.2 - Mixed hyperlipidemia (7) Pacemaker: Status: Acute Reason for Visit Reason for Visit: FEVER S/P PACEMAKER INSERTION ON Sunday04.18.21 Hospital Course Hospital Course Samir Olsen is a 75 year old male with past medical history of coronary artery disease with history of anterior [place] history of ischemic cardiomyopathy (EF 30%, global hypokinesis, abnormal septal motion consistent with conduction abnormality abnormal diastolic dysfunction echo done March 10, 2021)and sleep apnea patient does not use CPAP or BiPAP, hypertension, hyperlipidemia presented to the ER with complaint of fever, racing heart beat and shortness of breath and cough. He is a former smoker. Patient was discharged from our hospital on 04/20 after pacemaker placement. He was supposed to go for a total knee replacement but when he went for cardiac clearance he was found to be in complete heart block and therefore was set up to have a pacemaker placed. Procedure was uneventful and patient was discharged in stable condition. However he has now developed fever, and therefore he is back. Pt does endorse a chronic cough, shortness of breath. He states he also been experiencing lower extremity swelling lately. He was taken off his spironalactone by PCP due to RENETTA but was restarted when seen by cardiology. Pt does not take any other diuretic. He states the pacemaker site hurts a lot and he did not know he had a fever until he got to ER. He denies chest pain, abdominal pain, diarrhea, sputum production or urinary complaints. ED course: Temperature 100.6, pulse rate 113, respiratory rate 20, blood pressure 138/84, pulse ox 94%. Temp did go upto 103 later on for which he was given tylenol. CTA chest did not show any PE. There is findings suggestive of low-grade interstitial edema/pulmonary edema with central pulmonary hyperemia. Prominent mediastinal and hilar lymph nodes largest aortopulmonary node measuring 20 mm in the short axis, calcified granulomas of antecedent disease present. CT abdomen did not show any acute abdominal pelvic pathology process. Solitary tiny nonobstructing calyceal nephrolithiasis foci in the right kidney. WBC count 9.9, hemoglobin 13.2, sodium 135, chloride 97, creatinine 1.4, troponin 44, with delta troponin of 11. Baseline BNP 723 March 10, 2021. Covid PCR - April 13, 2021. Rapid antigen negative today in the ER. Blood cultures were drawn. Patient was started on vancomycin and cefepime after given 30 cc per kg IV fluids. Course Patient sepsis work-up was done and it was negative for any signs of infection. Patient presented with fluid overload CHF exacerbation. Acute on chronic systolic CHF was treated with IV Lasix. He spironolactone was stopped at discharge and he was placed on Lasix 20 daily. We also start carvedilol 3.125 twice daily. 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 She did state that the patient was noncompliant with medications. I stressed the importance of taking his medication at discharge. is present at bedside. Pacemaker site did not appear infected. Fever was most likely postop related. Patient remained afebrile during hospital stay. Covid PCR was sent and result is pending. I have a low suspicion for Covid however. Patient also had troponin elevation which was most likely secondary to demand ischemia secondary to fluid overload. Heparin drip was started but then discontinued shortly after due to elevated APTT. Patient remained chest pain-free throughout hospital stay. I did update cardiology with his stay here. Physical Exam Narrative: EXAM NARRATIVE: General: Alert oriented x3, patient seen sitting up in recliner. Comfortable. HEENT: Normocephalic, atraumatic, EOMI, breathing room air Cardio: Regular rate rhythm, normal S1-S2, no murmurs rubs gallops, Pacemaker site does not appear infected. there is no erythema or warm noted. there is no fluctuance noted as well. area is non tender to palpation. Respiratory: Good bilateral air entry, no crackles auscultated, no wheezes no rhonchi. Improved significantly. GI: Abdomen soft, nontender, nondistended, bowel sounds + Behavior: Appropriate and cooperative Extremities: Pulses 2+, no edema noted bilateral lower extremities. Significant improvement compared to admission. Discharge Data Data Completed and Pending: Completed Studies During Hospitalization Category Date Time Status CT angio chest w abd pel w con Urge nt Cat Scan 04/20/21 15:25 Completed XR chest 1V renzo ble [id number] Routine Exams 04/21/21 06:00 Completed XR chest 1V renzo ble [id number] Stat Exams 04/20/21 14:17 Completed Pending at discharge Category Date Time Status Blood Culture Sta t Lab 04/20/21 13:50 Results Coronavirus Test [facility] ne Lab 04/20/21 18:34 Received MRSA by PCR Stat Lab 04/20/21 18:05 Uncollected Platelet Count Q2 D Lab 04/23/21 04:00 Ordered Platelet Count Q2 D Lab 04/25/21 04:00 Ordered Sputum Culture an d Gram Stain Stat Lab 04/20/21 18:05 Uncollected Urine Culture Sta t Lab 04/20/21 18:05 Uncollected Vancomycin Trough Timed Lab 04/22/21 19:00 Ordered Labs from last 24 hours 04/22/21 04/22/21 04/21/21 05:59 05:59 14:29 WBC 5.8 RBC 3.86 L Hgb 11.6 L Hct 35.8 L MCV 92.7 MCH 30.1 MCHC 32.4 RDW 13.2 Plt Count 160 MPV 11.2 H Neut % (Auto) 55.4 Lymph % (Auto) 18.8 [place] % (Auto) 13.1 Eos % (Auto) 11.0 Baso % (Auto) 1.5 Neut # (Auto) 3.22 Lymph # (Auto) 1.1 [place] # (Auto) 0.8 Eos # (Auto) 0.6 Baso # (Auto) 0.1 Nucleated RBC % (a uto) 0 Nucleated RBCs # 0.0 APTT 198.9 H* D Sodium 134 L Potassium 3.9 Chloride 97 L Carbon Dioxide 24 Anion Gap 16.9 BUN 25 H Creatinine 1.1 GFR Calculation Not Reportable Glucose 92 Calculated Osmolal ity 282 L Calcium 9.1 Vitals: Last Vital Signs Temp 97.7 F 04/22/21 07:20 Pulse 77 04/22/21 09:51 Resp 18 04/22/21 09:48 BP 114/75 04/22/21 07:20 Pulse Ox 95 04/22/21 09:48 Discharge Plan Discharge Patient Disposition: Home Condition: Stable Prescriptions: New atorvastatin 40 mg Tablet 40 mg PO BEDTIME 30 Days Qty: 30 RF: 0 carvedilol 3.125 mg Tablet 3.125 mg PO BID 30 Days Qty: 60 RF: 0 Augmentin 875-125 mg tablet 1 tab PO BID 5 Days Qty: 10 RF: 0 Lasix 20 mg tablet 20 mg PO DAILY 30 Days Qty: 30 RF: 0 Continued clopidogrel 75 mg tablet 75 mg PO DAILY Qty: 90 RF: 6 omega-3 fatty acids [Fish Oil Concentrate] 1,000 mg capsule 1,000 mg PO DAILY RF: 0 hydrocodone-acetaminophen 5-325 mg Tablet 1 tab PO Q6H PRN (Reason: Moderate To Severe Pain) Qty: 15 RF: 0 aspirin 81 mg Tablet,Delayed Release (Dr/Ec) 81 mg PO QAM RF: 0 glucosamine HCl 1 cap PO DAILY RF: 0 Held lisinopril 10 mg tablet 5 mg PO DAILY Qty: 30 RF: 0 Hold Instructions: see cardio morinda citrifolia fruit 250 mg Capsule 250 mg PO DAILY RF: 0 Hold Instructions: see pcp Discontinued sulfamethoxazole-trimethoprim [Bactrim DS] 800-160 mg tablet 1 tab PO BID RF: 0 spironolactone 25 mg tablet 12.5 mg PO DAILY RF: 0 Discharge Orders: Discharge Order (Routine); Ordered 04/22/21 Ordered By: Jadyn Stevenson Other Ambulatory Orders: Basic Metabolic Panel (Routine) Timeframe: 3 Days Facility: [facility] - Location: Lab - Main Lab Ordered By: Jadyn Stevenson Referrals: Antoinette Oswald FNP [Primary Care Provider] - 04/28/21 9:30 am (You have an appointment with Antoinette Oswald on ) Selam Hanna MD [Physician] - 04/28/21 10:15 am Discharge Diet: Cardiac and Low Salt Discharge Activity: Resume usual activity Patient Instructions: Furosemide (By mouth) (Lasix), Amoxicillin/Clavulanate Potassium (By mouth) (Augmentin, Augmentin..., Atorvastatin (By mouth) (Lipitor), Carvedilol (By mouth) (Coreg, Coreg CR, Hypertenevide-12.5), Sleep Apnea (GEN), Pacemaker (DC), Opioid Safety Discharge Attestations Time Spent in Discharge Care*: greater than 30 min Status at Discharge: Cognitive status at discharge: cognitively intact, Behavioral status at discharge: cooperative, Quality Metrics Clinical Quality Measures During this hospital stay, did patient experience: None Coding Level of Care Code Acute Chg FW DC note Diagnoses Ischemic cardiomyopathy I25.5 HTN (hypertension) I10 Hypertension type: essential hypertension KINSEY (obstructive sleep apnea) G47.33 Acute kidney injury N17.9 Sepsis A41.9 Hyperlipidemia E78.2 Hyperlipidemia type: mixed hyperlipidemia Pacemaker Z95.0
[2021-04-22 16:54] LABS: Coronavirus Test Green County Not Detected
== END 2021-04-22 11:52 | disposition home or self-care (01) | DRG 291 ==
LOC: ER 17:45 → MEDSURG 19:00
PROVIDERS: Internal Medicine; Admitting Provider Internal Medicine; Emergency Provider Emergency Medicine; PCP Nurse Practitioner Family; Visit Provider Internal Medicine
DX: I11.0 Hypertensive heart disease with heart failure (principal); I50.23 Acute on chronic systolic (congestive) heart failure; N17.9 Acute kidney failure, unspecified; Z95.0 Presence of cardiac pacemaker; E78.2 Mixed hyperlipidemia; I25.5 Ischemic cardiomyopathy; I25.10 Atherosclerotic heart disease of native coronary artery without angina pectoris; G47.33 Obstructive sleep apnea (adult) (pediatric); Z87.891 Personal history of nicotine dependence; R59.0 Localized enlarged lymph nodes; Z79.02 Long term (current) use of antithrombotics/antiplatelets; Z79.891 Long term (current) use of opiate analgesic; Z79.82 Long term (current) use of aspirin
CPT/HCPCS: 36415; 71045; 71275; 74177; 76000; 80048; 80053; 80061; 81003; 83605; 83735; 83880; 84100; 84145; 84443; 84484; 85025; 85730; 87040; 87426; 87635; 87804; 93005; 94640; 96365; 96366; 96367; 96372; 99285; C1779; C1786; C1898; G0378; J0690; J0692; J1644; J1940; J2250; J2270; J2543; J2704; J3010; J3370; J3490; J7030; J7040; Q9967

== ENCOUNTER 2021-04-28 11:06 | Outpatient (CLI) | payer MEDICARE, OTHER, SELFPAY ==
[2021-04-28 12:23] LABS: Blood Urea Nitrogen 19 mg/dL (8-23); Calcium 8.4 mg/dL (8.5-10.5); Carbon Dioxide 21 mmol/L (22-29); Chloride 100 mmol/L (98-107); Glucose 83 mg/dL (65-115); Osmolality Calculated 281 mOsm/kg (285-295); Sodium 135 mmol/L (136-145)
[2021-04-28 12:29] LABS: Anion Gap 18.3 (5-19); Potassium 4.3 mmol/L (3.5-5.1)
== END 2021-04-28 11:07 | disposition home or self-care (01) ==
PROVIDERS: PCP Nurse Practitioner Family; Visit Provider Internal Medicine
DX: N17.9 Acute kidney failure, unspecified (principal)
CPT/HCPCS: 36415; 80048

== ENCOUNTER → 2021-08-26 09:48 | Outpatient (BNVA) | payer MEDICARE, OTHER, SELFPAY | PROVIDERS: PCP Nurse Practitioner Family; Visit Provider Internal Medicine Cardiovascular Disease | DX: Z95.0 Presence of cardiac pacemaker (principal) | CPT/HCPCS: 93280 ==

== ENCOUNTER → 2021-11-25 10:14 | Outpatient (BNVA) | payer MEDICARE, OTHER, SELFPAY | PROVIDERS: PCP Nurse Practitioner Family; Visit Provider Internal Medicine Cardiovascular Disease | DX: Z45.010 Encounter for checking and testing of cardiac pacemaker pulse generator [battery] (principal) | CPT/HCPCS: 93280 ==

== ENCOUNTER → 2022-01-03 10:50 | Outpatient (BNVA) | payer MEDICARE, OTHER, SELFPAY | PROVIDERS: PCP Nurse Practitioner Family; Visit Provider Internal Medicine Cardiovascular Disease | DX: I25.10 Atherosclerotic heart disease of native coronary artery without angina pectoris (principal); Z95.0 Presence of cardiac pacemaker; I44.2 Atrioventricular block, complete; I25.5 Ischemic cardiomyopathy; I10 Essential (primary) hypertension; E78.2 Mixed hyperlipidemia; Z87.891 Personal history of nicotine dependence | CPT/HCPCS: 99214 ==

== ENCOUNTER → 2022-02-24 10:43 | Outpatient (BNVA) | payer MEDICARE, OTHER, SELFPAY | PROVIDERS: PCP Nurse Practitioner Family; Visit Provider Internal Medicine Cardiovascular Disease | DX: Z45.010 Encounter for checking and testing of cardiac pacemaker pulse generator [battery] (principal) | CPT/HCPCS: 93280 ==

== ENCOUNTER → 2022-06-16 08:35 | Outpatient (BNVA) | payer MEDICARE, OTHER, SELFPAY | PROVIDERS: PCP Nurse Practitioner Family; Visit Provider Internal Medicine Cardiovascular Disease | DX: Z45.010 Encounter for checking and testing of cardiac pacemaker pulse generator [battery] (principal) | CPT/HCPCS: 93280 ==

== ENCOUNTER → 2022-12-05 13:48 | Outpatient (BNVA) | payer MEDICARE, OTHER, SELFPAY | PROVIDERS: PCP Nurse Practitioner Family; Visit Provider Internal Medicine Cardiovascular Disease | DX: Z95.0 Presence of cardiac pacemaker (principal); I44.2 Atrioventricular block, complete; I25.5 Ischemic cardiomyopathy; I25.10 Atherosclerotic heart disease of native coronary artery without angina pectoris; I10 Essential (primary) hypertension; E78.2 Mixed hyperlipidemia; Z87.891 Personal history of nicotine dependence | CPT/HCPCS: 99214 ==

== ENCOUNTER 2023-01-12 17:43 | Emergency (ER) | payer MEDICARE, OTHER, SELFPAY ==
[2023-01-12 17:55] VITALS: BP 116/66; PULSE 94; RESP 17; TEMP 37.2; O2SAT 95; BMI 32.5
--- NOTE | 2023-01-12 18:03 | ED_ITS ---
HPI - Extremity Problem General: Chief complaint: Extremity Problem,Nontraumatic Stated complaint: right arm swollen Time Seen by Provider: 01/12/23 18:02 History of Present Illness: 77-year-old male patient comes in with right wrist swelling and pain for the last 2 to 3 days. Patient does have a history of arthritis and gout. Patient appears nontoxic. Patient reports no injury or chest pain. Associated symptoms: Deny chest pain, fever(s) or rash Review of Systems Const: Denies: fever(s) Card: Denies: chest pain Resp: Denies: dyspnea GI: Denies: nausea or vomiting : Denies: difficulty urinating Musc: Reports: extremity pain and extremity swelling Skin/Breast: Denies: rash PFSH ED PFSH: Medical History CAD in [place] artery High-grade atrioventricular block HTN (hypertension) Hyperlipidemia Ischemic cardiomyopathy Myocardial infarction KISNEY (obstructive sleep apnea) Social History Smoking and tobacco status: former smoker Household members: spouse Marital status: Physical Exam Const: COMMON NORMALS: alert HENMT: COMMON NORMALS: normocephalic HEAD & SCALP: normocephalic Neck/C-Spine: COMMON NORMALS: full ROM Chest: COMMONS NORMALS: normal inspection of the chest Cardio: COMMON NORMALS: regular rate RATE: regular rate GI: COMMON NORMALS: Soft to palpation and non-tender PALPATION: Yes Soft to palpation Extremity: RIGHT UPPER EXTREMITY: Yes hand & digits (Radial swelling and tenderness MCP thumb) Neuro: SENSORIUM/ORIENTATION: Yes alert Skin: COMMON NORMALS: turgor normal GENERAL SKIN EXAM: turgor normal Course Vital Signs: Vital signs: Vital Signs Temperature 99 F 01/12/23 17:55 Pulse Rate 90 01/12/23 18:13 Respiratory Rate 18 01/12/23 18:13 Blood Pressure 106/66 01/12/23 18:13 Pulse Oximetry 94 01/12/23 18:13 Oxygen Delivery Me thod Room Air 01/12/23 18:13 MDM - Extremity (Nontraumatic) Medical Decision Making 77-year-old male patient comes in with right wrist pain and swelling for 2 to 3 days. Patient does have a history of gout. On exam patient has some tophi noted to the fingers, and swelling and tenderness along the MCP joint of the thumb and the radial wrist joint. Differential diagnosis includes but not limited to arthritis, gout, OA. X-ray no significant arthritis. Believe the patient probably has a flare of gouty arthritis. Patient was given 15 mg of ketorolac and 10 mg dexamethasone in the ER. Patient will be continued on colchicine and further medication for pain at home. Uric acid was 10, CRP was 27, sed rate was 13, white blood cell count was 10,000. Patient was treated for a gout flare will be continued on colchicine and hydrocodone for his pain re commend follow-up with primary care return to ER for worsening symptoms such as high fever. Lab Data 01/12/23 19:09 01/12/23 19:09 Radiology Impressions Wrist X-Ray 01/12/23 18:12 IMPRESSION: Degenerative changes. Laboratory Results WBC 10.3 10^3/uL (4.0-10.0) H 01/12/23 19:09 RBC 3.80 10^6/uL (4.1-5.3) L 01/12/23 19:09 Hgb 11.6 g/dL (11.7-16.6) L 01/12/23 19:09 Hct 35.8 % (42.0-52.0) L 01/12/23 19:09 MCV 94.2 fl (80-94) H 01/12/23 19:09 MCH 30.5 pg (28.0-34.0) 01/12/23 19:09 MCHC 32.4 g/dL (30.0-36.0) 01/12/23 19:09 RDW 14.2 % (12.1-15.1) 01/12/23 19:09 Plt Count 229 10^3/cmm (130-400) 01/12/23 19:09 MPV 11.1 fL (7.4-10.4) H 01/12/23 19:09 Neut % (Auto) 75.1 % 01/12/23 19:09 Lymph % (Auto) 13.6 % 01/12/23 19:09 [place] % (Auto) 7.3 % 01/12/23 19:09 Eos % (Auto) 2.9 % 01/12/23 19:09 Baso % (Auto) 0.7 % 01/12/23 19:09 Neut # (Auto) 7.70 10^3/uL (1.8-7.7) 01/12/23 19:09 Lymph # (Auto) 1.4 10^3/uL (0.8-4.8) 01/12/23 19:09 [place] # (Auto) 0.8 10^3/uL (0.2-0.9) 01/12/23 19:09 Eos # (Auto) 0.3 10^3/uL (0.0-0.8) 01/12/23 19:09 Baso # (Auto) 0.1 10^3/uL (0.0-0.1) 01/12/23 19:09 Nucleated RBC % (auto) 0 % 01/12/23 19:09 Nucleated RBCs # 0.0 /100WBC 01/12/23 19:09 ESR 13 mm/hr (0-10) H 01/12/23 19:09 Sodium 136 mmol/L (136-145) 01/12/23 19:09 Potassium 4.7 mmol/L (3.5-5.1) 01/12/23 19:09 Chloride 99 mmol/L (98-107) 01/12/23 19:09 Carbon Dioxide 25 mmol/L (22-29) 01/12/23 19:09 Anion Gap 16.7 (5-19) 01/12/23 19:09 BUN 26 mg/dL (8-23) H 01/12/23 19:09 Creatinine 1.4 mg/dL (0.7-1.2) H 01/12/23 19:09 GFR Calculation Not Reportable 01/12/23 19:09 Glucose 115 mg/dL (65-115) 01/12/23 19:09 Calculated Osmolality 288 mOsm/kg (285-295) 01/12/23 19:09 Uric Acid 10.0 mg/dL (3.4-7.0) H 01/12/23 19:09 Calcium 9.3 mg/dL (8.5-10.5) 01/12/23 19:09 Total Bilirubin 1.0 mg/dL (0.15-1.2) 01/12/23 19:09 AST 16 U/L (0-40) 01/12/23 19:09 ALT 14 U/L (0-41) 01/12/23 19:09 Alkaline Phosphatase 75 U/L (40-130) 01/12/23 19:09 C-Reactive Protein 27.4 mg/L (0.0-4.9) H 01/12/23 19:09 Total Protein 7.9 g/dL (6.6-8.7) 01/12/23 19:09 Albumin 4.3 g/dL (3.5-5.2) 01/12/23 19:09 Globulin 3.6 g/dL (1.3-4.6) 01/12/23 19:09 Discharge Plan Discharge Patient Disposition: Home Clinical Impression: Gout Qualifiers: Gout site: hand Gout etiology: unspecified cause Chronicity: acute Laterality: right Qualified Code(s): M10.9 - Gout, unspecified Condition: Stable Prescriptions: New colchicine 0.6 mg tablet 0.6 mg PO BID Qty: 10 0RF hydrocodone-acetaminophen 5-325 mg tablet 1 tab PO Q8H PRN (Reason: pain) Qty: 10 0RF No Action clopidogrel 75 mg tablet 75 mg PO DAILY Qty: 90 6RF omega-3 fatty acids [Fish Oil Concentrate] 1,000 mg capsule 1,000 mg PO DAILY ibuprofen [Advil] 200 mg tablet 200 mg PO Q6H PRN carvedilol [Coreg] 3.125 mg tablet 3.125 mg PO BID Rx Instructions: must administer with a meal/food lisinopril 10 mg tablet 5 mg PO DAILY Qty: 30 0RF Hold Instructions: see cardio morinda citrifolia fruit 250 mg Capsule 250 mg PO DAILY Hold Instructions: see pcp glucosamine HCl 1 cap PO DAILY Discharge Orders: Discharge ED (Routine); Ordered 01/12/23 Ordered By: Yonathan Gomez Referrals: Antoinette Oswald, [facility] [Primary Care Provider] - Discharge Diet: Usual diet Discharge Activity: Increase activity as tolerated Patient Instructions: Gout (ED) Activity Restrictions/Additional Instructions: Activity as tolerated. Use acetaminophen or ibuprofen to help control pain. Take colchicine as directed for the next 5 days. Follow-up with primary care for further instructions. Return to ED for new concerns. Coding Level of Care Code ED Valver for Clementine Meredith
--- NOTE | 2023-01-12 18:12 | XRR_ITS ---
PROCEDURE INFORMATION: Exam: XR Right Wrist Exam date and time: 01/12/2023 6:16 PM Age: 77 years old Clinical indication: Pain; Wrist; Right; Additional info: Pain swelling TECHNIQUE: Imaging protocol: Radiologic exam of the right wrist. Views: 3 or more views. COMPARISON: No relevant prior studies available. FINDINGS: Bones/joints: There are degenerative changes in the wrist especially involving the articulation between the navicular and trapezium and also some degenerative spurring from the ulnar styloid. There is narrowing of the radial carpal space with some marginal osteophyte. No fracture is identified. Soft tissues: Normal. XR/XR wrist RT min 3V* [id number] IMPRESSION: Degenerative changes.
[2023-01-12 18:13] VITALS: BP 106/66; PULSE 90; RESP 18; O2SAT 94
[2023-01-12] MEDS: ketorolac 30 mg/mL INJ 15 MG IM (18:28)
[2023-01-12] MEDS: dexamethasone 10 mg/mL INJ IM (18:29)
[2023-01-12 19:17] LABS: Basophils # 0.1 10^3/uL (0.0-0.1); Basophils % 0.7 %; Eosinophils # 0.3 10^3/uL (0.0-0.8); Eosinophils % 2.9 %; Hematocrit 35.8 % (42.0-52.0); Hemoglobin 11.6 g/dL (11.7-16.6); Lymphocytes # 1.4 10^3/uL (0.8-4.8); Lymphocytes % 13.6 %; Mean Corpuscular HGB Conc 32.4 g/dL (30.0-36.0); Mean Corpuscular Hemoglobin 30.5 pg (28.0-34.0); Mean Corpuscular Volume 94.2 fl (80-94); Mean Platelet Volume 11.1 fL (7.4-10.4); Monocytes # 0.8 10^3/uL (0.2-0.9); Monocytes % 7.3 %; Neutrophils % 75.1 %; Nucleated Red Blood Cells % 0 %; Platelet Count 229 10^3/cmm (130-400); Red Cell Distribution Width 14.2 % (12.1-15.1); White Blood Count 10.3 10^3/uL (4.0-10.0)
[2023-01-12 19:23] LABS: Erythrocyte Sedimentation Rate 13 mm/hr (0-10)
[2023-01-12 19:37] LABS: Alanine Aminotransferase 14 U/L (0-41); Albumin Level 4.3 g/dL (3.5-5.2); Alkaline Phosphatase 75 U/L (40-130); Anion Gap 16.7 (5-19); Aspartate Amino Transferase 16 U/L (0-40); Blood Urea Nitrogen 26 mg/dL (8-23); C Reactive Protein 27.4 mg/L (0.0-4.9); Calcium 9.3 mg/dL (8.5-10.5); Carbon Dioxide 25 mmol/L (22-29); Chloride 99 mmol/L (98-107); Globulin 3.6 g/dL (1.3-4.6); Glucose 115 mg/dL (65-115); Osmolality Calculated 288 mOsm/kg (285-295); Potassium 4.7 mmol/L (3.5-5.1); Sodium 136 mmol/L (136-145); Total Protein 7.9 g/dL (6.6-8.7)
[2023-01-12] MEDS: HYDROcodone-acetaminophen 5-325 mg Tablet 1 TAB PO (20:09)
[2023-01-12 20:11] VITALS: BP 107/66; PULSE 82; RESP 18; O2SAT 94
[2023-01-12 20:12] VITALS: BP 107/66; PULSE 83; RESP 18; O2SAT 93
== END 2023-01-12 20:15 | disposition home or self-care (01) ==
PROVIDERS: Emergency Provider Nurse Practitioner Family; PCP Nurse Practitioner Family
DX: M10.9 Gout, unspecified (principal); Z79.02 Long term (current) use of antithrombotics/antiplatelets; I25.10 Atherosclerotic heart disease of native coronary artery without angina pectoris; I10 Essential (primary) hypertension; E78.5 Hyperlipidemia, unspecified; I25.2 Old myocardial infarction; Z87.891 Personal history of nicotine dependence
CPT/HCPCS: 36415; 73110; 80053; 84550; 85025; 85651; 86140; 96372; 99284; J1100; J1885

== ENCOUNTER 2023-05-01 11:39 | Outpatient (CLI) | payer MEDICARE, OTHER, SELFPAY ==
--- NOTE | 2023-05-01 11:47 | XRR_ITS ---
PROCEDURE INFORMATION: Exam: XR Right Wrist Exam date and time: 05/01/2023 11:49 AM Age: 77 years old Clinical indication: Pain; Wrist; Right; Additional info: Right wrist pain TECHNIQUE: Imaging protocol: Radiologic exam of the right wrist. Views: 3 or more views. COMPARISON: CR XR wrist RT min 3V* [id number] 01/12/2023 6:16 PM FINDINGS: Bones/joints: Intercarpal and radiocarpal degenerative changes. No fracture or dislocation. No acute osseous or joint abnormality. Soft tissues: Normal. XR/XR wrist RT min 3V* [id number] IMPRESSION: Degenerative changes.
== END 2023-05-01 11:40 | disposition home or self-care (01) ==
LOC: RAD 11:40
PROVIDERS: PCP Nurse Practitioner Family; Visit Provider Nurse Practitioner Family
DX: M19.031 Primary osteoarthritis, right wrist (principal); M25.531 Pain in right wrist
CPT/HCPCS: 73110

== ENCOUNTER → 2023-07-04 10:41 | Outpatient (BNVA) | payer MEDICARE, OTHER, SELFPAY | PROVIDERS: Visit Provider Podiatrist Foot & Ankle Surgery | DX: I73.9 Peripheral vascular disease, unspecified (principal); L60.3 Nail dystrophy | CPT/HCPCS: 11721; 99203 ==

== ENCOUNTER 2023-08-29 08:32 | Outpatient (CLI) | payer MEDICARE, OTHER, SELFPAY ==
--- NOTE | 2023-08-29 08:42 | XR_ITS ---
WS: [id number] Left knee, 4 views, 08/29/2023 Clinical Data: Left knee pain Comparison: Left knee, 11/16/2020 Findings: No fractures or dislocations are seen. There is medial joint compartment narrowing with spurs of the medial femoral condyle and medial tibial plateau. There is a spur of the lateral femoral condyle. There are small posterior left patellar spurs. There is vascular calcification. Impression: Moderate degenerative arthritis of the left knee Kellgren-Rolly Classification: grade 3 (moderate): moderate multiple osteophytes, definite narrowi ng of joint space and some sclerosis and possible deformity of bone ends
--- NOTE | 2023-08-29 09:15 | XR_ITS ---
WS: [id number] Right knee, 4 views, 08/29/2023 Clinical Data: Right knee pain Comparison: Right knee, 11/16/2020 Findings: No fractures or dislocations are seen. There is medial joint compartment narrowing with a small spur of the medial tibial plateau. The right patella shows an anterior superior spur and a minimal posteri or inferior spur. Vascular calcification is present. Impression: Minimal osteoarthritis of the right knee. Kellgren-Rolly Classification: grade 2 (minimal): definite osteophytes and possible joint space na rrowing
== END 2023-08-29 08:33 | disposition home or self-care (01) ==
PROVIDERS: PCP Nurse Practitioner Family; Visit Provider Nurse Practitioner Family
DX: M17.0 Bilateral primary osteoarthritis of knee (principal)
CPT/HCPCS: 73564

== ENCOUNTER → 2023-10-09 09:11 | Outpatient (BNVA) | payer MEDICARE, OTHER, SELFPAY | PROVIDERS: PCP Nurse Practitioner Family; Visit Provider Podiatrist Foot & Ankle Surgery | DX: I73.9 Peripheral vascular disease, unspecified (principal); L60.3 Nail dystrophy; M17.0 Bilateral primary osteoarthritis of knee; M25.561 Pain in right knee; M25.562 Pain in left knee | CPT/HCPCS: 11721; 73560; 73565; 99213 ==

== ENCOUNTER → 2023-12-11 10:54 | Outpatient (BNVA) | payer MEDICARE, OTHER, SELFPAY | PROVIDERS: PCP Nurse Practitioner Family; Visit Provider Physician Assistant | DX: M17.0 Bilateral primary osteoarthritis of knee (principal) | CPT/HCPCS: 20610; 99213; J7318 ==

== ENCOUNTER → 2024-01-08 07:48 | Outpatient (BNVA) | payer MEDICARE, OTHER, SELFPAY | PROVIDERS: PCP Nurse Practitioner Family; Visit Provider Podiatrist Foot & Ankle Surgery | DX: I73.9 Peripheral vascular disease, unspecified (principal); L60.3 Nail dystrophy | CPT/HCPCS: 11721 ==

== ENCOUNTER → 2024-01-14 13:15 | Outpatient (BNVA) | payer MEDICARE, OTHER, SELFPAY | PROVIDERS: PCP Nurse Practitioner Family; Visit Provider Internal Medicine Cardiovascular Disease | DX: I10 Essential (primary) hypertension (principal); I25.5 Ischemic cardiomyopathy; I44.2 Atrioventricular block, complete; R00.1 Bradycardia, unspecified; I25.10 Atherosclerotic heart disease of native coronary artery without angina pectoris; E78.2 Mixed hyperlipidemia; Z95.0 Presence of cardiac pacemaker; I73.9 Peripheral vascular disease, unspecified; M17.0 Bilateral primary osteoarthritis of knee; G47.33 Obstructive sleep apnea (adult) (pediatric); I25.2 Old myocardial infarction; Z87.891 Personal history of nicotine dependence | CPT/HCPCS: 99214 ==

== ENCOUNTER → 2024-05-12 08:19 | Outpatient (BNVA) | payer MEDICARE, OTHER, SELFPAY | PROVIDERS: PCP Nurse Practitioner Family; Visit Provider Podiatrist Foot & Ankle Surgery | DX: I73.9 Peripheral vascular disease, unspecified (principal); L60.3 Nail dystrophy | CPT/HCPCS: 11721 ==

== ENCOUNTER → 2024-08-11 08:15 | Outpatient (BNVA) | payer MEDICARE, OTHER, SELFPAY | PROVIDERS: PCP Nurse Practitioner Family; Visit Provider Podiatrist Foot & Ankle Surgery | DX: I73.9 Peripheral vascular disease, unspecified (principal); L60.8 Other nail disorders; L60.3 Nail dystrophy | CPT/HCPCS: 11721 ==

== ENCOUNTER → 2024-08-29 09:12 | Outpatient (BNVA) | payer MEDICARE, OTHER, SELFPAY | PROVIDERS: PCP Nurse Practitioner Family; Visit Provider Internal Medicine | DX: Z45.018 Encounter for adjustment and management of other part of cardiac pacemaker (principal) | CPT/HCPCS: 93280 ==

== ENCOUNTER → 2024-11-10 08:15 | Outpatient (BNVA) | payer MEDICARE, OTHER, SELFPAY | PROVIDERS: PCP Nurse Practitioner Family; Visit Provider Podiatrist Foot & Ankle Surgery | DX: I73.9 Peripheral vascular disease, unspecified (principal); L60.8 Other nail disorders; L60.3 Nail dystrophy | CPT/HCPCS: 11721 ==

== ENCOUNTER → 2025-01-12 14:53 | Outpatient (BNVA) | payer MEDICARE, OTHER, SELFPAY | PROVIDERS: PCP Nurse Practitioner Family; Visit Provider Internal Medicine | DX: I25.10 Atherosclerotic heart disease of native coronary artery without angina pectoris (principal); I10 Essential (primary) hypertension; I25.5 Ischemic cardiomyopathy; I44.2 Atrioventricular block, complete; R00.1 Bradycardia, unspecified; E78.5 Hyperlipidemia, unspecified; I73.9 Peripheral vascular disease, unspecified; G47.33 Obstructive sleep apnea (adult) (pediatric); Z79.02 Long term (current) use of antithrombotics/antiplatelets; Z95.5 Presence of coronary angioplasty implant and graft; Z95.0 Presence of cardiac pacemaker; I25.2 Old myocardial infarction | CPT/HCPCS: 99214 ==

== ENCOUNTER → 2025-02-16 08:09 | Outpatient (BNVA) | payer MEDICARE, OTHER, SELFPAY | PROVIDERS: PCP Nurse Practitioner Family; Visit Provider Podiatrist Foot & Ankle Surgery | DX: E11.8 Type 2 diabetes mellitus with unspecified complications (principal); L60.3 Nail dystrophy; L60.8 Other nail disorders; I73.9 Peripheral vascular disease, unspecified | CPT/HCPCS: 11721 ==

== ENCOUNTER → 2025-05-18 08:13 | Outpatient (BNVA) | payer MEDICARE, OTHER, SELFPAY | PROVIDERS: PCP Nurse Practitioner Family; Visit Provider Podiatrist Foot & Ankle Surgery | DX: I73.9 Peripheral vascular disease, unspecified (principal); L60.3 Nail dystrophy; L60.8 Other nail disorders | CPT/HCPCS: 11721 ==